=== PATIENT | male | born 1945 | race Caucasian/White ===

== ENCOUNTER 2019-12-19 07:21 | Outpatient (CLI) | payer MEDICARE, SELFPAY ==
[2019-12-19 07:35] LABS: Basophils Absolute Auto 0.08 K/mm3 (0.00-0.10); Basophils Percent Auto 1.3 % (0.0-1.0); Eosinophils Absolute Auto 0.21 K/mm3 (0.02-0.50); Eosinophils Percent Auto 3.5 % (1.0-6.0); Hematocrit 48.4 % (37.0-46.0); Hemoglobin 15.9 g/dL (12.4-15.3); Immature Granulocyte Absolute 0.06 K/mm3 (0.00-0.00); Lymphocytes Absolute Auto 2.17 K/mm3 (1.10-4.50); Lymphocytes Percent Auto 35.8 % (18.0-42.0); Mean Corpuscular HGB Conc 32.9 g/dL (32.0-36.0); Mean Corpuscular Hemoglobin 28.4 pg (27.0-31.0); Mean Corpuscular Volume 86.6 fL (78.0-102.0); Mean Platelet Volume 8.5 fl (8.7-11.0); Monocytes Absolute Auto 0.51 K/mm3 (0.10-0.90); Monocytes Percent Auto 8.4 % (2.0-11.0); Platelet Count Result 212 K/mm3 (150-420); Red Blood Count 5.59 M/mm3 (4.70-6.10); Red Cell Distribution Width 14.2 % (11.6-14.4); White Blood Count 6.1 K/mm3 (4.8-10.8)
[2019-12-19 08:59] LABS: Alanine Aminotransferase 20 U/L (16-63); Albumin Level 3.2 g/dL (3.4-5.0); Alkaline Phosphatase 118 U/L (46-116); Anion Gap 8.4 mmol/L (7-16); Aspartate Amino Transferase 14 U/L (15-37); Bilirubin,Total 0.3 mg/dL (0.00-1.00); Blood Urea Nitrogen 14 mg/dL (7-18); Calcium 8.7 mg/dL (8.5-10.1); Carbon Dioxide 32 mmol/L (21-32); Chloride 107 mmol/L (98-108); Cholesterol 110 mg/dL (0-200); Estimated Glomerular Filt Rate > 60; Glucose 90 mg/dL (70-99); HDL Direct 41 mg/dL (40-60); LDL Cholesterol Calculated 53 mg/dL (<130); Osmolality Calculated 296 mOsm/kg (285-295); Potassium 4.4 mmol/L (3.5-5.1); Sodium 143 mmol/L (136-145); Total Protein 6.4 g/dL (6.4-8.2); Triglycerides 80 mg/dL (0-150)
[2019-12-19 09:22] LABS: Thyroid Stimulating Hormone Reflex 1.85 u/IU/mL (0.36-3.74)
[2019-12-19 12:56] LABS: Creatinine Urine 97.89 mg/dL (40-278)
== END 2019-12-19 07:22 | disposition home or self-care (01) ==
PROVIDERS: PCP Family Medicine; Visit Provider Family Medicine
DX: I10 Essential (primary) hypertension (principal)
CPT/HCPCS: 36415; 80053; 80061; 82043; 84443; 85025

== ENCOUNTER 2020-02-23 09:47 | Outpatient (CLI) | payer MEDICARE, SELFPAY ==
--- NOTE | ~2020-02-23 | CT_ITS ---
EXAMINATION:CT lung screening DATE: 02/23/2020 10:03 INDICATION: Personal history of tobacco dependence. Current smoker with 50 pack year history. TECHNIQUE: Computed tomography (CT) of the chest was performed without intravenous contrast. Automate d exposure control and iterative reconstruction technique were employed. The dose-length product (DLP ) was 201.55 mGy-cm. COMPARISON: None. FINDINGS: There is severe emphysema. There is mild atelectasis in right upper lobe. There is a 17 mm nodule in right lower lobe suspicious for primary bronchogenic carcinoma. There are greater than 20 s cattered nodules in the lungs in a random distribution measuring up to 8 mm suspicious for metastatic disease. A calcified right lung nodule is consistent with old granulomatous disease. No pleural effu zari. The heart size is normal. There are coronary artery calcifications. No pericardial effusion. Th ere is mild mediastinal lymphadenopathy suspicious for metastatic disease. For example, a right parat tomer node measures 12 x 21 mm. There is a 10 mm mass in left adrenal gland measuring low-attenuati on, consistent with an adenoma. There is mild chronic anterior wedging of T8 vertebral body. There is mild thoracic spondylosis. There is an old healed fracture of T1 spinous process. IMPRESSION: 1. Lung-RADS category 4X: Very suspicious. CT-guided biopsy of the largest lung nodule is recommended . Reviewed, dictated and finalized at location B. IMPRESSION: 1. Lung-RADS category 4X: Very suspicious. CT-guided biopsy of the largest lung nodule is recommended.
== END 2020-02-23 09:48 | disposition home or self-care (01) ==
LOC: CHSIMG 09:49
PROVIDERS: PCP Family Medicine; Visit Provider Family Medicine
DX: Z12.2 Encounter for screening for malignant neoplasm of respiratory organs (principal); Z87.891 Personal history of nicotine dependence
CPT/HCPCS: G0297

== ENCOUNTER 2020-03-03 01:18 | Outpatient (CLI) | payer MEDICARE, SELFPAY ==
[2020-03-03 18:13] LABS: SARS-CoV-2 RNA PCR Negative
== END 2020-03-03 01:19 | disposition home or self-care (01) ==
LOC: ANHCOVIDDT 01:19
PROVIDERS: PCP Family Medicine; Visit Provider Internal Medicine Critical Care Medicine
DX: Z01.812 Encounter for preprocedural laboratory examination (principal); Z20.828 Contact with and (suspected) exposure to other viral communicable diseases
CPT/HCPCS: 87635; C9803; U0003

== ENCOUNTER 2020-03-06 08:50 | Outpatient (CLI) | payer MEDICARE, SELFPAY ==
[2020-03-02 12:41] VITALS: BMI 30.7
[2020-03-06] VITALS (10 sets, daily range): BP systolic 158–194; BP diastolic 76–98; PULSE 49–57; RESP 12–20; O2SAT 49–99
--- NOTE | ~2020-03-06 | XR_ITS ---
XR chest 1V portable DATE: 03/06/2020 14:47 INDICATION: Post image guided lung biopsy TECHNIQUE: Portable upright AP view on 03/16/2020 at 1448 hours COMPARISON: 03/06/2020 portable AP chest views 03/06/2020 CT-guided percutaneous needle biopsy of right upper lobe mass FINDINGS: Heart size is normal. There is mild aortic unfolding. A mass density is again noted overlying the right mid to upper lung. There is no evidence of pneumoth orax following CT-guided percutaneous needle biopsy. The lungs appear clear of infiltrate or consolid ation. IMPRESSION: No evidence of iatrogenic pneumothorax following today's CT-guided periosteal biopsy of s uperior segment right lower lobe lung mass Reviewed, dictated and finalized at location A. IMPRESSION: No evidence of iatrogenic pneumothorax following today's CT-guided periosteal biopsy of superior segment right lower lobe lung mass
--- NOTE | ~2020-03-06 | CT_ITS ---
EXAMINATION: CT biopsy lung DATE: 03/06/2020 11:48 INDICATION: Solitary pulmonary nodule. TECHNIQUE: The procedure including the risks and benefits was discussed with the patient. Risks discu ssed included infection, approximately 1/20 risk of symptomatic hemorrhage beyond mild hemoptysis, ap proximately 1/3 risk of pneumothorax, and approximately 1/10 risk of pneumothorax severe enough to wa rrant chest tube placement. The patient understood the risks and agreed to proceed. The patient was p laced prone. The skin overlying the paraspinal right posterior chest was prepped and draped in steri le fashion. Anesthetic was administered with 1% lidocaine subcutaneously. A 19 gauge outer needle w as advanced under CT guidance to the lesion of interest. A 20 gauge core biopsy needle was then used to obtain 3 core biopsy specimens. The needle was removed and the entry site was cleaned and dressed. There were no immediate complications. The dose-length product was 176.08 mGy-cm. FINDINGS: CT images demonstrate the outer needle tip adjacent to a 1.7 cm nodule with lobular margins in the superior segment of the right lower lobe. Severe emphysema with multiple additional scattered bilateral pulmonary nodules suspicious for metastatic disease. IMPRESSION: 1. Successful CT-guided biopsy of a 1.7 cm right lower lobe nodule concerning for primary bronchogeni c carcinoma. Reviewed, dictated and finalized at location A. IMPRESSION: 1. Successful CT-guided biopsy of a 1.7 cm right lower lobe nodule concerning f or primary bronchogenic carcinoma.
--- NOTE | ~2020-03-06 | XR_ITS ---
XR chest 1V 03/06/2020 11:51 Indication: Post right lung biopsy Procedure: AP view of the chest Comparison: CT dated 03/06/2020 Findings: There is focal consolidation in the right mid thorax. Heart size normal. No pleural effusio n or pneumothorax. Impression: 1: Focal consolidation right mid thorax may relate to hemorrhage from recent biopsy and/or mass. 2: No pneumothorax identified. Reviewed, dictated and finalized at location A. Impression: 1: Focal consolidation right mid thorax may relate to hemorrhage from recent bi opsy and/or mass. 2: No pneumothorax identified.
--- NOTE | ~2020-03-06 | XR_ITS ---
EXAMINATION: XR chest 1V portable DATE: 03/06/2020 13:06 INDICATION: Status post percutaneous right lung biopsy. TECHNIQUE: frontal view of the chest was obtained. COMPARISON: Chest radiograph dated 03/06/2020 at 11:48 AM FINDINGS: Interval resolution of the previous small amount of pulmonary hemorrhage surrounding the biopsied nod ule projecting over the right upper lung zone. No new airspace opacities, pleural effusion, pulmonary edema or pneumothorax. The cardiomediastinal silhouette is normal. IMPRESSION: 1. No pleural effusion or pneumothorax post biopsy of a nodule in the superior segment of the right l ower lobe. 2. Resolution of prior small amount of postbiopsy pulmonary hemorrhage surrounding the nodule which i s concerning for primary bronchogenic carcinoma. Reviewed, dictated and finalized at location A. IMPRESSION: 1. No pleural effusion or pneumothorax post biopsy of a nodule in the superior segment of the right lower lobe. 2. Resolution of prior small amount of postbiopsy pulmonary hemorrhage surround ing the nodule which is concerning for primary bronchogenic carcinoma.
[2020-03-06 09:45] LABS: Basophils Absolute Auto 0.1 K/mm3 (0.0-0.1); Eosinophils Absolute Auto 0.3 K/mm3 (0-0.3); Eosinophils Percent Auto 4.1 % (0-4.4); Hematocrit 49.2 % (42.0-52.0); Hemoglobin 16.2 g/dL (14.0-18.0); Immature Granulocyte Absolute 0.08 K/mm3 (0.00-0.031); Immature Granulocyte Percent A 1.1 % (0-0.5); Lymphocytes Absolute Auto 2.28 K/mm3 (0.9-3.2); Lymphocytes Percent Auto 31.1 % (18.3-44.2); Mean Corpuscular HGB Conc 32.9 g/dl (32-36); Mean Corpuscular Volume 88.2 fl (80-100); Mean Platelet Volume 8.9 fl (7.4-10.4); Monocytes Absolute Auto 0.6 K/mm3 (0.1-0.6); Monocytes Percent Auto 8.2 % (2.6-8.5); Neutrophils Percent Auto 54.5 % (45.5-73.1); Platelet Count Result 186 k/mm3 (150-375); Red Blood Count 5.58 M/mm3 (4.6-6.20); Red Cell Distribution Width 15.8 % (11.5-14.5); White Blood Count 7.3 K/mm3 (4.5-10.0)
[2020-03-06 10:01] LABS: Prothrombin Time 13.3 Seconds (11.1-14.7)
--- NOTE | 2020-03-06 14:40 | SUR.PHASEII ---
1300 chest xray done. called dr helton about orders and pt wanting to sit up in stretcher. also about drsg with bloody drainage,instructed to change drsg.
--- NOTE | 2020-03-06 15:00 | SUR.PHASEII ---
1450 chest xray done.
== END 2020-03-06 15:15 | disposition home or self-care (01) ==
PROVIDERS: Radiology Diagnostic Radiology; PCP Family Medicine; Visit Provider Internal Medicine Critical Care Medicine
DX: R91.1 Solitary pulmonary nodule (principal)
CPT/HCPCS: 32405; 36415; 71045; 77012; 85025; 85610; 88305

== ENCOUNTER 2020-08-15 10:49 | Outpatient (CLI) | payer MEDICARE, SELFPAY ==
--- NOTE | ~2020-08-15 | CT_ITS ---
EXAMINATION: CT diagnostic chest w con DATE: 08/15/2020 11:18 INDICATION: Cough, shortness of breath. COPD. Smoker. TECHNIQUE: Computed tomography (CT) of the chest was performed with 75 cc Omnipaque 350 intravenous c ontrast. Automated exposure control and iterative reconstruction technique were employed. Exam dose: 565.20 mGy-cm total exam DLP. COMPARISON: 03/06/2020 portable AP chest 03/06/2020 CT lung biopsy 02/23/2020 CT lung screening FINDINGS: There is a stable lobular noncalcified soft tissue mass of up to approximately 1.6 cm dimen zari in the posterior right mid lung field and similar axial plane as the norma. This appears stable since 02/23/2020. Bullous emphysematous changes are again noted. Prominent discoid atelectasis or scarring is noted along the right greater fissure. There is a linear right apical scarring. There are multiple scattered bilateral nodular opacities, including the largest, a 7 mm nodule in the posterior segment of the left upper lobe (series 4 image 50) and an irregular up to 6.5 mm opacity i n the right upper lobe (series 4 image 31). Numerous additional smaller pulmonary opacities are prese nt. Metastatic disease or small primary pulmonary malignancies cannot be excluded. Continued CT follo w-up imaging in 6 months is recommended. Stable right paratracheal, aortopulmonary window, subcarinal and right hilar mild lymphadenopathy. Normal heart size. Normal morphology of the adrenal glands. IMPRESSION: Stable right upper lobe 1.6 cm mass Up to 7 mm bilateral lung masses which may indicate metastatic disease or small primary bronchogenic carcinomas versus infectious or granulomatous process; continued CT follow-up in 6 months is recommen ded Reviewed, dictated and finalized at Location A. Reviewed, dictated and finalized at location B. [employer] IMPRESSION: Stable right upper lobe 1.6 cm mass Up to 7 mm bilateral lung masses which may indicate metastatic disease or small primary bronchogenic carcinomas versus infectious or granulomatous process; co ntinued CT follow-up in 6 months is recommended
[2020-08-15 11:15] LABS: Estimated Glomerular Filt Rate > 60
== END 2020-08-15 10:50 | disposition home or self-care (01) ==
LOC: ANHIMG 10:52
PROVIDERS: PCP Family Medicine; Visit Provider Nurse Practitioner Family
DX: J43.9 Emphysema, unspecified (principal); R91.1 Solitary pulmonary nodule
CPT/HCPCS: 71260; Q9967

== ENCOUNTER 2020-10-23 11:07 | Inpatient (IN) | payer MEDICARE, SELFPAY ==
[2020-10-23] VITALS (7 sets, daily range): BP systolic 85–114; BP diastolic 42–63; PULSE 57–66; RESP 17–18; TEMP 36.1–36.6; O2SAT 95–97; BMI 29.6
[2020-10-23] MEDS: SODIUM CHLORIDE 0.9% IV 1,000 ML 999 ML (11:53)
--- NOTE | 2020-10-23 11:54 | ED.WEAKNESS ---
HPI - Weakness General Stated complaint: Weak Time Seen by Provider: 10/23/20 11:09 Source: patient and RN notes reviewed Mode of arrival: ambulatory Limitations: no limitations History of Present Illness Complaint: generalized weakness Related Data Home Medications Medication Instructions Recorded Confirmed aspirin 81 mg tablet,delayed 81 mg PO DAILY 09/02/19 10/23/20 release clopidogrel 75 mg tablet 75 mg PO DAILY tablet 09/02/19 10/23/20 omeprazole magnesium 20 mg 20 mg PO DAILY 09/02/19 10/23/20 capsule,delayed release lisinopril 20 mg tablet 40 mg PO DAILY tablet 08/30/20 10/23/20 omeprazole 20 mg PO DAILY 10/23/20 10/23/20 Allergies Allergy/AdvReac Type Severity Reaction Status Date / Time Penicillins Allergy Rash Verified 09/14/20 08:35 [facility] Past Medical History Medical History Chronic GERD Cigarette nicotine dependence Emphysema of lung Hyperlipidemia Hypertension Knee pain Lung nodule Lung nodules Rhinitis Shortness of breath on exertion Tobacco abuse Surgical History Surgical History H/O shoulder surgery History of appendectomy History of lung biopsy S/P coronary artery stent placement Family History Family History Father Lung cancer Mother Breast cancer Colon cancer Social History Social History Smoking packs per day: 1 Smoking cigarettes per day: 20.0 Years smoked: 50 Smoking pack-years: 50.00 Smoking status: Current every day smoker Alcohol intake: current Substance use: never Substance use type: marijuana Additional occupation/education comments: Sales Discharge Plan Discharge Prescriptions: No Action omeprazole 20 mg Tablet,Delayed Release (Dr/Ec) 20 mg PO DAILY RF: 0 Anoro Ellipta 62.5-25 mcg/actuation blister with device 1 inhalation INHALATION Q24H 30 Days Qty: 60 RF: 5 lisinopril 20 mg tablet 40 mg PO DAILY RF: 0 meloxicam 15 mg tablet 15 mg PO DAILY Qty: 30 RF: 3 atorvastatin 40 mg tablet 40 mg PO DAILY Qty: 30 RF: 5 chlorthalidone 25 mg tablet 25 mg PO DAILY Qty: 30 RF: 3 clopidogrel 75 mg tablet 75 mg PO DAILY RF: 0 Hold Instructions: Resume on 03/07/20. may restart in 24 hours omeprazole magnesium [Ac[employer] Service Representative (omeprazole)] 20 mg capsule,delayed release(DR/EC) 20 mg PO DAILY RF: 0 aspirin [Adult Low Dose Aspirin] 81 mg tablet,delayed release (DR/EC) 81 mg PO DAILY RF: 0 Hold Instructions: Resume on 03/07/20. may restart in 24 hours atenolol 50 mg tablet 75 mg PO DAILY Qty: 11 RF: 0
--- NOTE | 2020-10-23 12:02 | ED.NAVMDI ---
HPI - Nausea/Vomiting/Diarrhea General Source: patient and RN notes reviewed <Gurdeep Cannon MD - Last Filed: 10/23/20 14:30> Mode of arrival: ambulatory <Gurdeep Cannon MD - Last Filed: 10/23/20 14:30> Limitations: no limitations <Gurdeep Cannon MD - Last Filed: 10/23/20 14:30> History of Present Illness MD elicited complaint: diarrhea <Gurdeep Cannon MD - Last Filed: 10/23/20 14:30> Onset (ago): day(s) (8) <Gurdeep Cannon MD - Last Filed: 10/23/20 14:30> Description of diarrhea: watery <Gurdeep Cannon MD - Last Filed: 10/23/20 14:30> Associated nausea: No <Gurdeep Cannon MD - Last Filed: 10/23/20 14:30> Associated abdominal pain: No <Gurdeep Cannon MD - Last Filed: 10/23/20 14:30> Location of pain: none <Gurdeep Cannon MD - Last Filed: 10/23/20 14:30> Exacerbating factors: eating <Gurdeep Cannon MD - Last Filed: 10/23/20 14:30> Relieving factors: none <Gurdeep Cannon MD - Last Filed: 10/23/20 14:30> Associated symptoms: weakness <Gurdeep Cannon MD - Last Filed: 10/23/20 14:30> Treatment prior to arrival: other ( Pepto-Bismol) <Gurdeep Cannon MD - Last Filed: 10/23/20 14:30> Related Data Home medications: Home Medications Medication Instructions Recorded Confirmed aspirin 81 mg tablet,delayed 81 mg PO DAILY 09/02/19 10/23/20 release clopidogrel 75 mg tablet 75 mg PO DAILY tablet 09/02/19 10/23/20 omeprazole magnesium 20 mg 20 mg PO DAILY 09/02/19 10/23/20 capsule,delayed release lisinopril 20 mg tablet 40 mg PO DAILY tablet 08/30/20 10/23/20 omeprazole 20 mg PO DAILY 10/23/20 10/23/20 <Gurdeep Cannon MD - Last Filed: 10/23/20 14:30> Allergies/Adverse reactions: Allergies Allergy/AdvReac Type Severity Reaction Status Date / Time Penicillins Allergy Rash Verified 09/14/20 08:35 <Gurdeep Cannon MD - Last Filed: 10/23/20 14:30> Review of Systems Constitutional: Constitutional: Denies chills, Denies fever(s) and Reports weakness <Gurdeep Cannon MD - Last Filed: 10/23/20 14:30> Eyes: Eyes: Reports no additional eye complaints <Gurdeep Cannon MD - Last Filed: 10/23/20 14:30> ENT: Reports system reviewed and no additional complaints, except as documented <Gurdeep Cannon MD - Last Filed: 10/23/20 14:30> Cardiovascular: Cardiovascular: Reports no additional cardiovascular complaints <Gurdeep Cannon MD - Last Filed: 10/23/20 14:30> Respiratory: Respiratory: Reports no additional respiratory complaints <Gurdeep Cannon MD - Last Filed: 10/23/20 14:30> Gastrointestinal: Gastrointestinal: Denies abdominal pain, Denies constipation, Denies nausea and Denies vomiting <Gurdeep Cannon MD - Last Filed: 10/23/20 14:30> Genitourinary: Genitourinary: Denies dysuria and Denies urinary frequency <Gurdeep Cannon MD - Last Filed: 10/23/20 14:30> Neurologic: Reports system reviewed and no additional complaints, except as documented <Gurdeep Cannon MD - Last Filed: 10/23/20 14:30> Endocrine: Endocrine: Reports no additional endocrine complaints <Gurdeep Cannon MD - Last Filed: 10/23/20 14:30> [facility] Past Medical History Medical History: Medical History (Updated 10/23/20 @ 13:42 by Gurdeep Cannon MD) Chronic GERD Cigarette nicotine dependence Emphysema of lung Hyperlipidemia Hypertension Knee pain Lung nodule Lung nodules Rhinitis Shortness of breath on exertion Tobacco abuse <Gurdeep Cannon MD - Last Filed: 10/23/20 14:30> Surgical History Surgical History: Surgical History H/O shoulder surgery History of appendectomy History of lung biopsy S/P coronary artery stent placement <Gurdeep Cannon MD - Last Filed: 10/23/20 14:30> Family History Family History: Family History Father Lung cancer Mother Breast cancer Colon cancer <Gurdeep Cannon M
[2020-10-23 12:13] LABS: Basophils Absolute Auto 0.08 K/mm3 (0.00-0.10); Basophils Percent Auto 0.8 % (0.0-1.0); Eosinophils Absolute Auto 0.37 K/mm3 (0.02-0.50); Eosinophils Percent Auto 3.6 % (1.0-6.0); Hematocrit 43.8 % (37.0-46.0); Hemoglobin 14.7 g/dL (12.4-15.3); Immature Granulocyte Absolute 0.21 K/mm3 (0.00-0.00); Mean Corpuscular HGB Conc 33.6 g/dL (32.0-36.0); Mean Corpuscular Hemoglobin 28.4 pg (27.0-31.0); Mean Corpuscular Volume 84.6 fL (78.0-102.0); Mean Platelet Volume 8.5 fl (8.7-11.0); Monocytes Absolute Auto 0.92 K/mm3 (0.10-0.90); Monocytes Percent Auto 8.9 % (2.0-11.0); Neutrophils Absolute Auto 6.1 K/mm3 (1.7-7.2); Neutrophils Percent Auto 58.7 % (50.0-70.0); Platelet Count Result 288 K/mm3 (150-420); Red Blood Count 5.18 M/mm3 (4.70-6.10); Red Cell Distribution Width 14.4 % (11.6-14.4); White Blood Count 10.4 K/mm3 (4.8-10.8)
[2020-10-23 12:29] LABS: Alanine Aminotransferase 26 U/L (16-63); Albumin Level 3.3 g/dL (3.4-5.0); Alkaline Phosphatase 111 U/L (46-116); Anion Gap 14 mmol/L (8-16); Aspartate Amino Transferase 11 U/L (15-37); Bilirubin,Total 0.3 mg/dL (0.00-1.00); Blood Urea Nitrogen 114 mg/dL (7-18); Calcium 8.9 mg/dL (8.5-10.1); Carbon Dioxide 18 mmol/L (21-32); Chloride 102 mmol/L (98-108); Estimated Glomerular Filt Rate 11; Glucose 88 mg/dL (70-99); Osmolality Calculated 313 mOsm/kg (285-295); Potassium 5.1 mmol/L (3.5-5.1); Sodium 134 mmol/L (136-145); Total Protein 7.2 g/dL (6.4-8.2)
[2020-10-23 12:43] LABS: Lipase 2306 U/L (73-393)
[2020-10-23] MEDS: SODIUM CHLORIDE 0.9% IV 1,000 ML 999 ML IV CONT (12:46)
[2020-10-23 12:55] LABS: Amylase 460 U/L (25-115)
[2020-10-23 12:57] LABS: CRP 1.5 mg/dL (0.0-0.9)
--- NOTE | 2020-10-23 14:31 | ADMGEN ---
This patient, Gigi Barfield, was admitted to 2nd Floor Room 205-2. Patient/family oriented to hospital policies and general routines including ID bracelet, bed and alarms, visiting hours, pain management, procedures, bathroom and other care routines, personal items, smoking policy, room service/diet, and visiting hours. Information on how to activate the Rapid Response Team has been discussed. Patient/Family are encouraged to report perceived risks to care and to ask questions if they do not understand what they are told or what they should do. Here from er with c/o general weakness and loose stools over the last week. just feel wore out. Denies any pain or sob.
--- NOTE | 2020-10-23 15:25 | PM.IMHP ---
H&P: HPI History of Present Illness Date/Time: 10/23/20 15:25 Gigi Barfield is a 75 year old male who comes to the hospital after having diarrhea for about 8 days. Pt states that he does eat well when he wants to but actually does not eat very much. He admits to less than a 12 pack of beer per week. He denies abdominal pain, admits to 1 episode of vomiting. Pt also states that he has only urinated about 5 times in the last week or so. Pt states that his urine has been quite dark when he does actually urinate. Pt denies any CP, difficulty breathing, no abdominal pain, no additional vomiting, no nausea, admits to slight muscle weakness in the legs. <PARMJIT Marte - Last Filed: 10/23/20 16:05> Chief Complaint: Diarrhea, weakness <PARMJIT Marte - Last Filed: 10/23/20 16:05> Review of Systems Constitutional: Constitutional: Reports no additional constitutional complaints, Denies body ache(s), Denies chills, Denies fever(s), Reports poor appetite and Reports weakness <PARMJIT Marte - Last Filed: 10/23/20 16:05> Eyes: Eyes: Reports no additional eye complaints and Denies change in vision <PARMJIT Marte - Last Filed: 10/23/20 16:05> ENT: Reports system reviewed and no additional complaints, except as documented, Denies vertigo, Denies dizziness and Denies headache(s) <PARMJIT Marte - Last Filed: 10/23/20 16:05> Cardiovascular: Cardiovascular: Reports no additional cardiovascular complaints, Denies chest pain and Denies chest pain at rest <PARMJIT Marte - Last Filed: 10/23/20 16:05> Respiratory: Respiratory: Reports no additional respiratory complaints, Denies cough, Denies dyspnea and Denies dyspnea on exertion <PARMJIT Marte - Last Filed: 10/23/20 16:05> Gastrointestinal: Gastrointestinal: Reports no additional gastrointestinal complaints, Denies abdominal pain and Reports diarrhea <PARMJIT Marte - Last Filed: 10/23/20 16:05> Genitourinary: Genitourinary: Reports no additional male genitourinary complaints and Reports as per HPI <PARMJIT Marte - Last Filed: 10/23/20 16:05> Musculoskeletal: Musculoskeletal: Reports no additional musculoskeletal complaints and Reports as per HPI <PARMJIT Marte - Last Filed: 10/23/20 16:05> Neurologic: Reports system reviewed and no additional complaints, except as documented, Reports Normal hearing present, Denies vertigo and Denies dizziness <PARMJIT Marte - Last Filed: 10/23/20 16:05> Psychiatric: Psychiatric: Reports no additional psychiatric complaints <PARMJIT Marte - Last Filed: 10/23/20 16:05> [facility] Past Medical History Medical History: Medical History Chronic GERD Cigarette nicotine dependence Emphysema of lung Hyperlipidemia Hypertension Knee pain Lung nodule Lung nodules Rhinitis Shortness of breath on exertion Tobacco abuse <PARMJIT Marte - Last Filed: 10/23/20 16:05> Surgical History Surgical History: Surgical History H/O shoulder surgery History of appendectomy History of lung biopsy S/P coronary artery stent placement <PARMJIT Marte - Last Filed: 10/23/20 16:05> Family History Family History: Family History Father Lung cancer Mother Breast cancer Colon cancer <PARMJIT Marte - Last Filed: 10/23/20 16:05> Social History Social History: Social History Smoking packs per day: 1 Smoking cigarettes per day: 20.0 Years smoked: 50 Smoking pack-years: 50.00 Smoking status: Current every day smoker Tobacco type: cigarettes Alcohol intake: current Drinks per week: 24 Substance use: never Substance use type: marijuana Additional occupation/education comments: Sales
--- NOTE | 2020-10-23 15:56 | PC.NURSE ---
Pt voided 400 ml clear yellow urine. Ua collected and taken to lab.
[2020-10-23 16:21] LABS: Add Urine Microscopic? NO; Appearance Urine Clear (Clear); Bilirubin Urine Negative (Negative); Blood Urine Negative (Negative); Color Urine Yellow (Yellow); Glucose Urine UA Negative (Negative); Ketones Urine Negative (Negative); Leukocyte Esterase Ur Negative LEU/UL (Negative); Nitrate Urine Negative (Negative); Protein Urine Negative (Negative); Urobilinogen Urine 0.2 mg/dL (0.2-1.0)
[2020-10-23] MEDS: SODIUM CHLORIDE 0.9% IV 1,000 ML 125 ML IV CONT (23:05)
[2020-10-24 00:18] VITALS: BP 82/48; PULSE 67; RESP 18; TEMP 36.9; O2SAT 93
--- NOTE | 2020-10-24 04:44 | PC.NURSE ---
Patientup and dressed per self, took IV site out per self, States that he is ready to go home, is sitting in his room waiting, denies pain or discomfort, no nausea or diarrhea.
[2020-10-24 05:38] LABS: Hematocrit 44.4 % (37.0-46.0); Hemoglobin 14.9 g/dL (12.4-15.3); Mean Corpuscular HGB Conc 33.6 g/dL (32.0-36.0); Mean Corpuscular Hemoglobin 29.1 pg (27.0-31.0); Mean Corpuscular Volume 86.7 fL (78.0-102.0); Platelet Count Result 278 K/mm3 (150-420); Red Blood Count 5.12 M/mm3 (4.70-6.10); Red Cell Distribution Width 14.6 % (11.6-14.4); White Blood Count 10.2 K/mm3 (4.8-10.8)
--- NOTE | 2020-10-24 05:51 | PC.NURSE ---
Patient is up walkling around and going outside to smoke, got his own glass of water, is waiting to leave he says.
[2020-10-24 05:53] LABS: Anion Gap 12 mmol/L (8-16); Blood Urea Nitrogen 90 mg/dL (7-18); Calcium 9.4 mg/dL (8.5-10.1); Carbon Dioxide 20 mmol/L (21-32); Chloride 107 mmol/L (98-108); Estimated CRCL calculation 23 ml/min; Estimated Glomerular Filt Rate 22; Glucose 78 mg/dL (70-99); Osmolality Calculated 314 mOsm/kg (285-295); Potassium 4.9 mmol/L (3.5-5.1); Sodium 139 mmol/L (136-145)
[2020-10-24 05:54] LABS: Lipase 2050 U/L (73-393)
--- NOTE | 2020-10-24 06:30 | PC.NURSE ---
Spoke to patient about restarting his IV site; He told the staff that he didnt think he needed one restarted. IV remains out at this time. Message left with Pradeep, ER nurse , to give to Dr. Cannon regarding pt's not wanting his IV restarted ( Dr. Cannon was with a patient).
[2020-10-24 08:00] VITALS: BP 106/48; PULSE 62; RESP 18; TEMP 36.6; O2SAT 97
[2020-10-24] MEDS: CLOPIDOGREL BISULFATE 75 MG TABLET PO (08:01)
[2020-10-24] MEDS: ATORVASTATIN 40 MG TABLET PO (08:01)
[2020-10-24] MEDS: lisinopriL 20 MG TABLET 40 MG PO (08:01)
[2020-10-24] MEDS: SODIUM CHLORIDE 0.9% IV 1,000 ML 125 ML IV CONT (08:01)
[2020-10-24] MEDS: ASPIRIN 81 MG ENTERIC TABLET PO (08:01)
[2020-10-24] MEDS: PANTOPRAZOLE SODIUM IV 40 MG VIAL IV PUSH (08:01)
[2020-10-24] MEDS: UMECLIDINIUM/VILANTEROL 62.5-25 MCG ELLIPTA 1 PUFF INHALATION (08:07)
--- NOTE | 2020-10-24 11:19 | PM.DS ---
DS: Admitting Diagnosis Admitting Diagnosis Admitting Diagnosis: Acute Pancreatitis, Acute Renal Failure <Gray ChambersISSACN-C - Last Filed: 10/24/20 13:07> DS: Discharge Diagnosis Discharge Diagnosis (1) Acute pancreatitis: Qualifiers: Acute pancreatitis complication: no infection or necrosis Pancreatitis type: idiopathic Qualified Code(s): K85.00 - Idiopathic acute pancreatitis without necrosis or infection <Gray LauDimitris Reyes CAN FILLER-C - Last Filed: 10/24/20 13:07> Code(s): K85.90 - Acute pancreatitis without necrosis or infection, unspecified <Gray Chambers CAN FILLER-C - Last Filed: 10/24/20 13:07> Status: Acute <Gray Chambers CAN FILLER-C - Last Filed: 10/24/20 13:07> Assessment and Plan: 10/23/2020 Pt received 2 Liters NS in the ER and currently NS @ 125 ml/h, NPO, bowel rest, Morphine for pain management (currently no abdominal pain), monitor Lipase, Advance diet as tolerated, Pt states less than a case (12 pack) of beer per week, normal WBC count. 10/24/2020 Lipase lower today at 2049, Pt continues to be without pain at rest/ while eating/ with palpation of the abdomen, no N/V/D, Pt positive fluid balance of 1850 ml, Pt did not require any pain medications during her stay. <Gray Chambers CAN FILLER-C - Last Filed: 10/24/20 13:07> (2) Acute renal failure: Qualifiers: Acute renal failure type: unspecified Qualified Code(s): N17.9 - Acute kidney failure, unspecified <Gray LauDimitris Reyes CAN FILLER-C - Last Filed: 10/24/20 13:07> Code(s): N17.9 - Acute kidney failure, unspecified <Gray LauDimitris Ibrahimarolly CAN FILLER-C - Last Filed: 10/24/20 13:07> Status: Acute <Gray Chambers CAN FILLER-C - Last Filed: 10/24/20 13:07> Assessment and Plan: 10/23/2020 Had 2 Liters NS in the ER, continue with NS 125ml/h, monitor renal function, monitor I&O 10/24/2020 Cr improved today to 2.81, encouraged Pt to continue drinking water after DC home, follow up with PCP, reduce EtOH intake <PARMJIT Marte - Last Filed: 10/24/20 13:07> (3) Emphysema of lung: Qualifiers: Emphysema type: unspecified Qualified Code(s): J43.9 - Emphysema, unspecified <PARMJIT Marte - Last Filed: 10/24/20 13:07> Code(s): J43.9 - Emphysema, unspecified <KYLE MarteC - Last Filed: 10/24/20 13:07> Status: Acute <PARMJIT Marte - Last Filed: 10/24/20 13:07> Assessment and Plan: 10/23/2020 Chronic and stable, continue with Anoro Ellipta, monitor respiratory status 10/24/2020 Chronic stable condition, continue with home regimen on DC <PARMJIT Marte - Last Filed: 10/24/20 13:07> (4) Chronic GERD: Code(s): K21.9 - Gastro-esophageal reflux disease without esophagitis <PARMJIT Marte - Last Filed: 10/24/20 13:07> Status: Chronic <PARMJIT Marte - Last Filed: 10/24/20 13:07> Assessment and Plan: 10/23/2020 Protonix <PARMJIT Marte - Last Filed: 10/24/20 13:07> (5) Hypertension: Code(s): I10 - Essential (primary) hypertension <KYLE MarteC - Last Filed: 10/24/20 13:07> Status: Chronic <PARMJIT Marte - Last Filed: 10/24/20 13:07> Assessment and Plan: 10/23/2020 BP soft at this time (80-90/40-60, HR 60s), HOLD Atenolol and Chlorthalidone at this time, monitor VS and make adjustments as needed. 10/24/2020 BP 100-110/40-50 with HR 50-60, will continue to hold Atenolol and Chlorthalidone on DC and have Pt f/u with PCP for further management of HTN, Pt asymptomatic <PARMJIT Marte - Last Filed: 10/24/20 13:07> (6) Hyperlipidemia: Code(s): E78.5 - Hyperlipidemia, unspecified <PARMJIT Marte - Last Filed: 10/24/20 13:07> Status: Chronic <PARMJIT Marte - Last Filed: 10/24/20 13:07> Assessment and Plan: 10/23/2020 Continue Atorvastatin <Gray Chambers APN
--- NOTE | 2020-10-24 13:44 | PC.NURSE ---
0213 patient dc instructions went over along with follow up. encouraged to stop alcohol usage. drink extra water. vocalizes an understanding. wc to personal auto.
--- NOTE | 2020-10-26 10:26 | PC.NURSE ---
Pt states he received and understood the discharge instructions. Has no comments regarding his care.
== END 2020-10-24 13:30 | disposition home or self-care (01) | DRG 439 ==
LOC: CHSED 13:41 → CHS2ND 14:01
PROVIDERS: Nurse Practitioner Family; Admitting Provider Emergency Medicine; Emergency Provider Emergency Medicine; PCP Family Medicine; Visit Provider Emergency Medicine
DX: K85.00 Idiopathic acute pancreatitis without necrosis or infection (principal); K21.9 Gastro-esophageal reflux disease without esophagitis; I10 Essential (primary) hypertension; J43.9 Emphysema, unspecified; E78.5 Hyperlipidemia, unspecified; R91.8 Other nonspecific abnormal finding of lung field; Z95.5 Presence of coronary angioplasty implant and graft; N17.9 Acute kidney failure, unspecified; F17.210 Nicotine dependence, cigarettes, uncomplicated; Z80.1 Family history of malignant neoplasm of trachea, bronchus and lung; Z80.3 Family history of malignant neoplasm of breast; Z80.0 Family history of malignant neoplasm of digestive organs
CPT/HCPCS: 36415; 80048; 80053; 81003; 82150; 83690; 85025; 85027; 86140; 96360; 96361; 99285; A9270; C9113; J7030

== ENCOUNTER 2020-11-29 11:58 | Outpatient (CLI) | payer MEDICARE, SELFPAY ==
[2020-11-29 12:49] LABS: Anion Gap 9 mmol/L (8-16); Blood Urea Nitrogen 8 mg/dL (7-18); Calcium 9.1 mg/dL (8.5-10.1); Carbon Dioxide 30 mmol/L (21-32); Chloride 103 mmol/L (98-108); Estimated Glomerular Filt Rate > 60; Glucose 108 mg/dL (70-99); Osmolality Calculated 293 mOsm/kg (285-295); Potassium 3.6 mmol/L (3.5-5.1); Sodium 142 mmol/L (136-145)
== END 2020-11-29 11:59 | disposition home or self-care (01) ==
PROVIDERS: PCP Family Medicine
DX: N28.9 Disorder of kidney and ureter, unspecified (principal)
CPT/HCPCS: 36415; 80048

== ENCOUNTER 2020-12-13 09:27 | Outpatient (CLI) | payer MEDICARE, SELFPAY ==
--- NOTE | ~2020-12-13 | US_ITS ---
EXAMINATION:US venous doppler LE BI INDICATION:Leg edema TECHNIQUE: Multiple grayscale, color flow and Doppler images of the right and left lower extremity de ep venous systems were obtained and reviewed. COMPARISON:No prior studies for comparison. FINDINGS: The common femoral, superficial femoral and popliteal veins demonstrate normal respiratory variation, augmentation and compressibility. Color flow is also seen within the posterior tibial, pe roneal, greater saphenous and profunda veins. IMPRESSION: 1: No lower extremity deep venous thrombosis. Reviewed, dictated and finalized at location A.
== END 2020-12-13 09:28 | disposition home or self-care (01) ==
LOC: CHSIMG 09:29
PROVIDERS: PCP Family Medicine; Visit Provider Family Medicine
DX: R60.9 Edema, unspecified (principal); M79.606 Pain in leg, unspecified
CPT/HCPCS: 93970

== ENCOUNTER 2021-03-14 08:20 | Outpatient (CLI) | payer MEDICARE, SELFPAY ==
--- NOTE | ~2021-03-14 | CT_ITS ---
EXAMINATION: CT diagnostic chest wo con DATE: 03/14/2021 08:52 INDICATION: Other nonspecific abnormal finding of the lung field, prior right lower lobe biopsy demon strating pulmonary chondroma TECHNIQUE: Computed tomography (CT) of the chest was performed without intravenous contrast. The dose -length product (DLP) was 176.88 mGy-cm. Automated exposure control and iterative reconstruction tech [employer] were employed. COMPARISON: 08/15/2020, 02/23/2020 FINDINGS: There is severe emphysema. A stable 1.7 cm nodule in the right lower lobe has been previous ly biopsied (pulmonary chondroma). There is a stable 7 mm nodule in the left upper lobe on image 51. Multiple additional smaller, stable nodules are present. No new pulmonary nodules are identified. The re is no pleural effusion or pneumothorax. No pathologically enlarged thoracic lymph nodes are identi fied. The heart size is normal. There is mild thoracic spondylosis. Again noted is mild chronic ante rior wedging of T8. IMPRESSION: 1. Multiple stable pulmonary nodules, the largest of which has undergone prior biopsy. 2. Severe emphysema. Reviewed, dictated and finalized at location A.
== END 2021-03-14 08:21 | disposition home or self-care (01) ==
LOC: ANHIMG 08:21
PROVIDERS: PCP Family Medicine; Visit Provider Nurse Practitioner Family
DX: R91.8 Other nonspecific abnormal finding of lung field (principal); J43.9 Emphysema, unspecified
CPT/HCPCS: 71250

== ENCOUNTER 2021-03-16 09:31 | Outpatient (CLI) | payer MEDICARE, SELFPAY ==
--- NOTE | ~2021-03-16 | XR_ITS ---
XR knee RT min 4V DATE: 03/16/2021 10:05 INDICATION: Right knee pain TECHNIQUE: 5 views COMPARISON: None FINDINGS: There is severe narrowing at the medial compartment with [id number] and some sclerosis at the apposing medial femoral condyle and medial tibial plateau. There is varus deformity at the right knee. There is periarticular spurring at the patellofemoral compartment. No fracture or dislocation, periosteal reaction or bone destruction. Mild suprapatellar bursa joint effusion is suggested. No radiopaque intra-articular loose body or chondrocalcinosis. Osteopenia IMPRESSION: Osteoarthritis, affecting most prominently the medial compartment Mild suprapatellar knee joint effusion is suggested Reviewed, dictated and finalized at location A.
== END 2021-03-16 09:32 | disposition home or self-care (01) ==
LOC: CHSIMG 09:32
PROVIDERS: PCP Family Medicine; Visit Provider Family Medicine
DX: M25.561 Pain in right knee (principal); M17.11 Unilateral primary osteoarthritis, right knee
CPT/HCPCS: 73564

== ENCOUNTER 2021-03-20 07:51 | Outpatient (RCR) | payer MEDICARE, SELFPAY ==
--- NOTE | 2021-03-20 08:02 | PTOPEVAL ---
Thank you for referring Gigi Barfield to [facility].? The patient is scheduled to be seen for therapy? ____x/week for ___ weeks. Please review, sign, date and return this plan of care CECI. I agree with and certify that the following plan of care is medically necessary. Referring Physician Date Admitting Provider: Attending Provider: Brock Wu MD Referring Provider: *PT Outpatient Evaluation Start: 03/20/21 07:09 Freq: Status: Active Protocol: Document 03/20/21 07:09 ACR (Rec: 03/20/21 08:01 ACR [id number]) Therapy Assessment Status Assessment Status Assessment Status Evaluation Outpatient Past Medical History Cardiovascular History Hx Hypercholesterolemia Yes Hx Hypertension Yes Hx Vascular Surgery Yes: STENT PLACED CAROTID Respiratory History Hx Chronic Obstructive Pulmonary Disease Yes (COPD) Hx Other Respiratory Disorders Yes: LUNG NODULE Gastrointestinal History Hx Gastroesophageal Reflux Disease Yes Genitourinary History Hx Kidney Stones Yes Musculoskeletal History Hx Arthritis Yes Hx Back Pain Yes Hx Orthopedic Surgery Yes: L SHOULDER RTC REPAIR HEENT History Hx Tonsillectomy Yes Evaluation Information Problem Diagnosis R knee pain Onset 09/17/20 Subjective Information Patient states that his R knee Query Text:As Reported By Patient/ has been bothering him, but Family there is no mechanism of injury. He states he is not very active because of it. Patient states he got an x-ray which shows arthritis. He states that if he is on it too much it starts to swell and his calf starts to ache. Patient states that walking/ standing for a prolonged period of time and steps are the most difficult activities for him. Patient states that he is unable to golf and cheung without an increase in pain. Patient states that his doctor gave him some pain medication , but he is unsure if it is helping at this time due to him just starting them a couple days ago. Patient states that his knee gives out by the end of
--- NOTE | 2021-04-23 08:56 | PCPTNOTE ---
Patient is a 76 year old male that was seen for the initial evaluation. He canceled all other appointments and stated he was able to perform all of his exercises at home. Please refer to evaluation for discharge status. Thank you, Chinyere Pizarro DPT
== END 2021-03-20 16:17 | disposition home or self-care (01) ==
LOC: CHSPT 07:51
PROVIDERS: PCP Family Medicine; Visit Provider Family Medicine
DX: M25.561 Pain in right knee (principal); R91.1 Solitary pulmonary nodule; E66.9 Obesity, unspecified; M25.569 Pain in unspecified knee; I10 Essential (primary) hypertension; E78.5 Hyperlipidemia, unspecified
CPT/HCPCS: 97110; 97161

== ENCOUNTER 2021-04-02 14:36 | Outpatient (CLI) | payer MEDICARE, SELFPAY | END 2021-04-02 14:37 | disposition home or self-care (01) | PROVIDERS: PCP Family Medicine; Visit Provider Specialist | DX: C43.59 Malignant melanoma of other part of trunk (principal) | CPT/HCPCS: 88305; 88342 ==

== ENCOUNTER 2022-03-13 10:30 | Outpatient (CLI) | payer MEDICARE, SELFPAY ==
--- NOTE | ~2022-03-13 | CT_ITS ---
EXAMINATION:CT lung screening DATE: 03/13/2022 10:53 INDICATION: Tobacco use. Current smoker with 50 pack year history. TECHNIQUE: Computed tomography (CT) of the chest was performed without intravenous contrast. Automate d exposure control and iterative reconstruction technique were employed. The dose-length product (DLP ) was 176.38 mGy-cm. COMPARISON: Chest CT 03/14/2021, 02/23/20 FINDINGS: There is severe emphysema. There is an 18 mm nodule in right lower lobe, stable from 0. Biopsy on 03/06/20 demonstrated pulmonary chondroma. There is an 8 mm nodule in left upper lobe, sta ble from 02/23/20. 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 There are a few chronic scattered nodules measuring up to [address] eural effusion. The heart size is normal. There are calcifications of the aortic valve. No pericardia l effusion. There is chronic mild mediastinal lymphadenopathy, likely reactive. A calcified right hil ar lymph node is consistent with old granulomatous disease. There is mild thoracic spondylosis. IMPRESSION: 1. Lung-RADS category 2: Benign appearance or behavior. Continue annual screening with noncontrast lo w-dose chest CT in 12 months. Reviewed, dictated and finalized at location A. IMPRESSION: 1. Lung-RADS category 2: Benign appearance or behavior. Continue annual screeni ng with noncontrast low-dose chest CT in 12 months.
== END 2022-03-13 10:31 | disposition home or self-care (01) ==
PROVIDERS: PCP Family Medicine; Visit Provider Nurse Practitioner Family
DX: Z12.2 Encounter for screening for malignant neoplasm of respiratory organs (principal); Z87.891 Personal history of nicotine dependence; R91.8 Other nonspecific abnormal finding of lung field
CPT/HCPCS: 71271

== ENCOUNTER 2023-03-24 13:29 | Outpatient (CLI) | payer MEDICARE, SELFPAY ==
--- NOTE | ~2023-03-24 | CT_ITS ---
EXAMINATION: CT lung screening DATE: 03/24/2023 13:51 INDICATION: Lung cancer screening TECHNIQUE: Computed tomography (CT) of the chest was performed without intravenous contrast. The dose -length product was 198.06 mGy-cm. Automated exposure control and iterative reconstruction technique were employed. COMPARISON: Comparison to multiple prior studies sequentially, with oldest reviewed study dated 02/22. FINDINGS: Mediastinal lymphadenopathy unchanged, likely reactive. There is atherosclerosis of the aor ta. No significant pleural or pericardial effusion. There is a 3.1 cm left renal cyst. Severe emphyse ma. There is 1.6 cm right lower lobe nodule, previously documented benign by biopsy. 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 Stable 8 mm left upper lobe nodule. There are additional scattered nodules measuring up to 5 mm unchanged. No en dobronchial lesions. There are reticulonodular densities in the upper lobes unchanged. There are surg ical changes in the axilla bilaterally. Moderate thoracic spondylosis. IMPRESSION: 1. Lung-RADS category 2: Benign appearance or behavior. Continue annual screening with noncontrast lo w-dose chest CT in 12 months. Reviewed, dictated and finalized at location L. IMPRESSION: 1. Lung-RADS category 2: Benign appearance or behavior. Continue annual screeni ng with noncontrast low-dose chest CT in 12 months.
== END 2023-03-24 13:30 | disposition home or self-care (01) ==
PROVIDERS: PCP Family Medicine; Visit Provider Nurse Practitioner Family
DX: Z12.2 Encounter for screening for malignant neoplasm of respiratory organs (principal); F17.210 Nicotine dependence, cigarettes, uncomplicated
CPT/HCPCS: 71271

== ENCOUNTER 2023-04-17 10:35 | Outpatient (CLI) | payer MEDICARE, SELFPAY ==
--- NOTE | 2023-04-17 11:15 | ECG_ITS ---
Measurements Intervals [place] Rate: 55 P: 51 W[place]: 291 QRS: 10 QRSD: 111 T: 34 QT: 441 QTc: 423 Interpretive Statements SINUS BRADYCARDIA WITH FIRST DEGREE AV BLOCK MODERATE INTRAVENTRICULAR CONDUCTION DELAY [110+ ms QRS DURATION] NO PREVIOUS ECG AVAILABLE FOR COMPARISON Electronically Signed On 04-17-2023 13:36:09 CDT by Latonya Corbin MD
[2023-04-17 11:29] LABS: Hematocrit 45.5 % (42.0-52.0); Hemoglobin 14.8 g/dL (14.0-18.0)
[2023-04-17 11:42] LABS: Albumin Level 4.1 g/dL (3.5-5.1); Estimated Glomerular Filt Rate > 60; Glucose 88 mg/dL (65-110)
== END 2023-04-17 10:36 | disposition home or self-care (01) ==
PROVIDERS: PCP Family Medicine; Visit Provider Orthopaedic Surgery
DX: F17.210 Nicotine dependence, cigarettes, uncomplicated (principal); K85.90 Acute pancreatitis without necrosis or infection, unspecified; N17.9 Acute kidney failure, unspecified; J44.9 Chronic obstructive pulmonary disease, unspecified; I10 Essential (primary) hypertension; M17.0 Bilateral primary osteoarthritis of knee
CPT/HCPCS: 36415; 82040; 82565; 82947; 85014; 85018; 93005

== ENCOUNTER 2023-07-15 11:39 | Outpatient (CLI) | payer MEDICARE, SELFPAY ==
[2023-07-15 12:54] LABS: Basophils Absolute Auto 0.1 K/mm3 (0.0-0.1); Basophils Percent Auto 1.1 % (0.2-1.2); Eosinophils Absolute Auto 0.3 K/mm3 (0-0.3); Eosinophils Percent Auto 2.9 % (0-4.4); Hematocrit 50.8 % (42.0-52.0); Immature Granulocyte Absolute 0.13 K/mm3 (0.00-0.031); Immature Granulocyte Percent A 1.3 % (0-0.5); Lymphocytes Absolute Auto 2.53 K/mm3 (0.9-3.2); Lymphocytes Percent Auto 25.1 % (18.3-44.2); Mean Corpuscular HGB Conc 31.5 g/dl (32-36); Mean Corpuscular Hemoglobin 27.1 pg (26-34); Mean Corpuscular Volume 86.1 fl (80-100); Mean Platelet Volume 9.2 fl (7.4-10.4); Monocytes Absolute Auto 0.9 K/mm3 (0.1-0.6); Monocytes Percent Auto 8.5 % (2.6-8.5); Neutrophils Absolute Auto 6.2 K/mm3 (1.3-6.7); Neutrophils Percent Auto 61.1 % (45.5-73.1); Platelet Count Result 239 k/mm3 (150-375); Red Cell Distribution Width 15.4 % (11.5-14.5); White Blood Count 10.1 K/mm3 (4.5-10.0)
[2023-07-15 13:05] LABS: Albumin Level 4.4 g/dL (3.5-5.1); Estimated Glomerular Filt Rate > 60; Glucose 99 mg/dL (65-110)
[2023-07-15 13:38] LABS: Urine Cotinine NEGATIVE
[2023-07-15 13:48] LABS: Hemoglobin A1C 6.9 % (<5.7)
[2023-07-15 14:33] LABS: MRSA (PCR) DETECTED (NOT DETECTE)
== END 2023-07-15 11:40 | disposition home or self-care (01) ==
LOC: ANHSURGERY 11:42
PROVIDERS: PCP Family Medicine; Visit Provider Orthopaedic Surgery
DX: M17.11 Unilateral primary osteoarthritis, right knee (principal); Z01.818 Encounter for other preprocedural examination
CPT/HCPCS: 80307; 82040; 82565; 82947; 83036; 85025; 87641

== ENCOUNTER 2023-08-03 01:36 | Day surgery (SDC) | payer MEDICARE, SELFPAY ==
[2023-07-15 12:01] VITALS: BP 146/86; PULSE 68; RESP 16; TEMP 36.7; O2SAT 94; BMI 31.0
--- NOTE | 2023-07-15 12:17 | PC.NURSE ---
Report to the Outpatient Waiting Room, entrance under the green pavilion located off [facility], at time _10:00AM on date _08/03/23 . Planned Procedure Time: __12:00PM . Time changes happen often and if your time is changed the preop area will call you the afternoon before. - You and your visitor will be asked to self-screen and do not enter if you have any COVID symptoms. - A mask is optional within the hospital at this time. Patients may have clear liquids (water, carbonated beverages, clear teas, apple juice) until 3 hours prior to surgery with a maximum of 20 ounces. - No food from midnight until time of surgery. Take the following medications with a SIP of water the morning of surgery: ___AMLODIPINE, METOPROLOL, INHALER DO NOT STOP ANY OF YOUR OTHER PRESCRIPTION MEDICATIONS PRIOR TO SURGERY ?EXCEPT THE FOLLOWING Medications to discontinue per physician ____HOLD PLAVIX, ASPIRIN & MELOXICAM 7 DAYS PRE-OP PER DR BURGESS Date to take last dose____07/26/23 Please no make-up, nail malay, hairspray, perfume, deodorant, or body powder the day of surgery. No jewelry (including any body piercings) or valuables the day of surgery, leave them at home. Please take a shower or bath the night before, or the morning of, surgery with an antibacterial soap. Wear comfortable, loose fitting clothing. Children are encouraged to wear pajamas. - Jewelry must be removed prior to entering the operating room. Rings and piercings that are not removed may be cut off. - The hospital will not accept responsibility for valuables. - Please leave all valuables, including medications, at home the day of surgery. If you are going home after surgery, a licensed jitney driver must drive you home. - NO public transportation without another adult if you receive anesthesia. - We recommend that an adult stay with you for 24 hours following discharge. - We also recommend that you do not drive, make important decision, drink alcoholic beverages, or take any drugs that were not prescribed by your health care provider for at least 24 hours after your discharge time. Follow any additional instructions given to you from your surgeon. If you or anyone in your household have experienced Covid symptoms in the past week, please notify your surgeon or the nurse liaison at the phone number below for possible testing. Telephone instructions given to ___PATIENT and asked if any additional questions and then verbalized understanding. Patient advised to call surgeon office or pre surgery nurse liaison [phone] if any additional questions.
[2023-08-03] VITALS (16 sets, daily range): BP systolic 95–146; BP diastolic 56–76; PULSE 58–82; RESP 14–20; TEMP 36–36.6; O2SAT 92–98
--- NOTE | ~2023-08-03 | XR_ITS ---
EXAMINATION: [id number] DATE: 08/03/2023 14:31 INDICATION: Postoperative evaluation following right total knee arthroplasty. TECHNIQUE: Anteroposterior and lateral views of the right knee were obtained. COMPARISON: 04/15/2023 FINDINGS: Right total knee arthroplasty with patellar resurfacing appears well seated and in near anatomic alig nment. No fractures identified. Expected postoperative subcutaneous and intra-articular gas. IMPRESSION: 1. Right total knee arthroplasty, negative for postoperative purposes. Reviewed, dictated and finalized at location A. [employer]
[2023-08-03] MEDS: LACTATED RINGERS 1,000 ML 30 ML IV CONT ×2 (10:45→14:19)
[2023-08-03] MEDS: TRANEXAMIC ACID 1,000MG/ISO100 1,000 MG/100 ML BAG 200 MG IVPB (10:49)
[2023-08-03] MEDS: ACETAMINOPHEN 500 MG TABLET 1000 MG PO ×3 (10:49→23:42)
--- NOTE | 2023-08-03 11:27 | WPDANESEPPF ---
Anes - Initial Pre Proc Eval Procedure: Operation Date: 08/03/23 12:00 Proposed Procedures p Right Total Knee Arthroplasty - Joo Bull MD Date/Time: 08/03/23 11:27 Surgeon: Joo Bull MD Pre Op Diagnosis: primary OA right knee Patient Data Age: 78 Gender: M Height: 1.8 m Weight: 99.3 kg Last Vital Signs Temp 36.6 C 08/03/23 10:29 Pulse 58 L 08/03/23 10:29 Resp 18 08/03/23 10:29 BP 146/72 H 08/03/23 10:29 Pulse Ox 98 08/03/23 10:29 O2 Del Method Room Air 08/03/23 10:29 Allergies Allergy/AdvReac Type Severity Reaction Status Date / Time Penicillins Allergy Rash Verified 08/03/23 10:25 Home Medications Medication Instructions Recorded Confirmed Type aspirin 81 mg tablet,delayed 81 mg PO DAILY 09/02/19 07/22/23 History release (Adult Low Dose Aspirin) clopidogrel 75 mg tablet 75 mg PO DAILY 09/02/19 07/22/23 History omeprazole magnesium 20 mg 20 mg PO DAILY 09/02/19 07/22/23 History capsule,delayed release ([employer] (omeprazole)) lisinopril 20 mg tablet 40 mg PO QAM 08/30/20 07/22/23 History metoprolol succinate 100 mg 100 mg PO QAM 12/13/20 07/22/23 History tablet,extended release 24 hr atorvastatin 40 mg tablet 40 mg PO DAILY #30 tabs 01/09/21 07/22/23 Rx meloxicam 15 mg tablet 15 mg PO DAILY #30 tabs 04/22/21 07/22/23 Rx amlodipine 10 mg tablet 10 mg PO QAM 04/14/22 07/22/23 History albuterol sulfate 90 mcg/actuation 1 puff inhalation Q4H PRN 10/08/22 07/22/23 History aerosol inhaler Shortness Of Breath Or Wheezing ipratropium bromide 21 mcg (0.03 2 spray intranasal BID PRN 07/15/23 07/22/23 History %) nasal spray Congestion Anoro Ellipta 62.5 mcg-25 1 inh inhalation Q24H #60 ea 07/16/23 07/22/23 Rx mcg/actuation powder for inhalation (umeclidinium-vilanterol) tramadol 50 mg tablet 50 mg PO Q6H PRN pain #30 tabs 07/22/23 07/22/23 Rx Laboratory Tests 08/03/23 10:37 Blood Type Pending Antibody Screen Pending Patient hx anesthesia problems: none Family hx anesthesia problems: none Results Review: All pre-operative results and documents have been reviewed as part of the pre-operative evaluation. [facility] Past Medical History Medical History Chronic GERD Cigarette nicotine dependence Emphysema of lung History of stress test Hyperlipidemia Hypertension Knee pain Bilateral Lung nodule Lung nodules Pain and swelling of right lower leg Rhinitis Right knee pain Shortness of breath on exertion Tobacco abuse URI (upper respiratory infection) Surgical History Surgical History H/O shoulder surgery History of appendectomy History of lung biopsy Hx of tonsillectomy S/P coronary artery stent placement Family History Family History Father Lung cancer Mother Breast cancer Colon cancer Sibling Cancer Social History Social History Smoking packs per day: 1.5 Smoking cigarettes per day: 30.0 Years smoked: 60 Smoking pack-years: 90.00 Smoking status: Former smoker Tobacco type: cigarettes Smoking end date: 02/07/23 Alcohol intake: current Drinks per week: 12 Alcohol use details: social Substance use: never Substance use type: marijuana Do You Feel Safe in your Home?: Yes Lack of Transportation: No Lack of Food: Never True Current Housing: I Have Housing Concerned About Future Housing: No Difficulty Paying Gas/Electric Bills: No Difficulty Paying for Meds: No Currently Unemployed: No Education: High School Diploma/GED Difficulty w/ Childcare or Family Care: No Living arrangements: alone Occupation/Education: occupation Additional occupation/education comments: Sales Gender identity (if verbalized by the patient): Male Sexual
--- NOTE | 2023-08-03 11:42 | WPDHPUPDATE1 ---
History and Physical Update Update Date/Time: 08/03/23 11:42 History and Physical has been reviewed, including an updated exam of the patient. There are NO changes in the patient's condition. Risks, benefits, and alternatives have been discussed and questions answered. Patient agrees to proceed with procedure.
--- NOTE | 2023-08-03 12:06 | WPDANESPNB ---
Anes - Peripheral Nerve Block Date/Time: 08/03/23 12:06 I have discussed with the patient/family/POA the placement of a peripheral nerve block for post-operative pain management, including associated risks, benefits, complications, and side effects. Alternative methods of post-operative analgesia were detailed. Questions were solicited and answers provided to the satisfaction of the patient/family/POA. Time-Out: A pre-procedural Time-Out was completed immediately before starting the procedure and confirmed: Patient Identification, Site, Procedure, Patient Position and the Availability of Requisite Equipment. Clinical Indications: Acute post-operative pain management requested by the operative surgeon. Nerve Block Insertion Note Anes-nerve block: adductor canal right Patient position: supine Skin prep: chlorhexidine Needle: 22 gauge, stimulating, insulated echogenic needle. Needle length: 80 mm Technique: ultrasound Injectate: bupivacaine 0.5% with epi 5 mcg/ml (30cc no epi) and dexamethasone (mg) (8) Observations: tolerated well Complications: none Procedure start time:: 1159 Procedure end time:: 1204
[2023-08-03] MEDS: ceFAZolin 2 GM/D5W 50 ML 2 GM/50 ML BAG IVPB ×2 (12:08→20:11)
[2023-08-03] MEDS: GENTAMICIN BONE CEMENT REFOBACIN 1 EACH TOPICAL (12:41)
--- NOTE | 2023-08-03 14:26 | W.PM.PROC2 ---
Procedure Note - Detailed Date of Procedure 08/03/23 Pre-op Diagnosis primary OA right knee Post-op Diagnosis Same Procedure Performed Total knee arthroplasty, right. Surgeon Joo Bull MD Chief Executive Or Managing Director Annette Charles PA-C Anesthesia General and Regional (subsartorial block) Findings Severe varus deformity with varus thrust. Notable medial tibia wear. Minimal medial tibia resection. PS utilized. Large medial release. Femur downsized 1.5 mm. Description of Procedure The patient was brought to the operating room. A general anesthetic was administered. The leg was prepped and draped in the usual sterile fashion. The limb was elevated and the tourniquet inflated to 300 mmHg during initial exposure, and cementation. A longitudinal incision was created along the medial border of the patella and patellar tendon, and a trivector approach to the knee was performed. A large medial release was taken. The knee was then flexed. The osteophytes were carefully removed. The intramedullary guide was placed in the femoral canal. The distal femoral resection was then taken with the oscillating saw. The collateral ligaments were carefully protected. The tibia was carefully exposed. The jig was applied, and the proximal tibia was resected according to preoperative plan. The knee was balanced in extension. Appropriate releases were taken where needed. The anterior cruciate ligament and meniscal remnants were removed. The posterior cruciate ligament was excised. The patella was measured. Patellar resection was carried out with the oscillating saw. The lug holes drilled. The femur was sized and rotation assessed using a combination of gap balancing, posterior referencing, and the AP axis. The 4 in 1 cutting block was used to finish the femoral cuts after equal gaps were assured. The box cut was taken. The osteophytes were carefully removed from the back of the knee. The knee was copiously irrigated with antibiotic solution periodically throughout the procedure. The meniscal remnants were removed. The spacer block was used to confirm equal flexion and extension gaps. 5 needle penetrations performed. The tibia was sized and broached. The bony surfaces were prepared for cementing with pulsatile lavage. The real tibial and femoral and patellar components were cemented into position. Excess cement was carefully removed. Patellar tracking was carefully assessed. No additional releases were required. Dilute sterile Betadine soak performed for three minutes. Copious irrigation then performed. The wound was closed with #1 Vicryl suture, #2, 2-0, and 3-0 barbed suture, followed by Steri-Strips. A sterile bulky dressing was applied. Meticulous hemostasis was maintained throughout the procedure. The bipolar cautery device was used. The pain relieving mixture was injected into the periarticular tissues during the procedure. There were no complications. The patient was extubated and brought to the recovery room in stable condition after the application of sterile dressing with Ford bandage. Implants [email or web address] Triathlon knee system, low profile cemented tibia size 6, cemented cruciate retaining femoral component size 6 ,and a 16 mm posterior stabilized polyethylene insert. 38 mm asymmetric all polyethylene patella component. Estimated Blood Loss 50 Drains No Pathology None sent Complications No immediate complications Condition Stable Disposition PACU [facility] Billing Surgery - Charge Forward: Surgery Billing
--- NOTE | 2023-08-03 14:35 | SUR.PHASEI ---
Notified Dr. Otero of irregular heart rhythm in PACU. Dr. Otero stated this is patient's baseline and no EKG or further orders needed.
[2023-08-03] MEDS: fentaNYL CITRATE INJ (*CRX) 100 MCG/2 ML VIAL 25 MCG IV PUSH ×4 (14:47→15:32)
--- NOTE | 2023-08-03 16:09 | ADMGEN ---
This patient, Gigi Barfield, was admitted to 2 Medical Room 259-01. Patient/family oriented to hospital policies and general routines including ID bracelet, bed and alarms, visiting hours, pain management, procedures, bathroom and other care routines, personal items, smoking policy, room service/diet, and visiting hours. Information on how to activate the Rapid Response Team has been discussed. Patient/Family are encouraged to report perceived risks to care and to ask questions if they do not understand what they are told or what they should do.
[2023-08-03] MEDS: SENNA/DOCUSATE SODIUM TABLET 2 TAB PO (16:52)
[2023-08-03] MEDS: oxyCODONE HCL (*CRX) 5 MG TAB IR PO (20:10)
[2023-08-03] MEDS: CYCLOBENZAPRINE HCL 10 MG TABLET PO (20:11)
[2023-08-04] MEDS: ceFAZolin 2 GM/D5W 50 ML 2 GM/50 ML BAG IVPB (03:53)
[2023-08-04] MEDS: traMADol HCL (*CRX) 50 MG TABLET PO (03:54)
[2023-08-04] MEDS: ACETAMINOPHEN 500 MG TABLET 1000 MG PO (04:28)
[2023-08-04 04:35] VITALS: BP 109/66; PULSE 62; RESP 20; TEMP 36; O2SAT 94
[2023-08-04 05:42] LABS: Basophils Percent Auto 0.2 % (0.2-1.2); Hematocrit 42.9 % (42.0-52.0); Immature Granulocyte Absolute 0.12 K/mm3 (0.00-0.031); Immature Granulocyte Percent A 0.8 % (0-0.5); Lymphocytes Absolute Auto 1.55 K/mm3 (0.9-3.2); Lymphocytes Percent Auto 10.7 % (18.3-44.2); Mean Corpuscular HGB Conc 32.6 g/dl (32-36); Mean Corpuscular Hemoglobin 28.7 pg (26-34); Mean Corpuscular Volume 87.9 fl (80-100); Mean Platelet Volume 9.5 fl (7.4-10.4); Monocytes Absolute Auto 0.8 K/mm3 (0.1-0.6); Monocytes Percent Auto 5.6 % (2.6-8.5); Neutrophils Percent Auto 82.7 % (45.5-73.1); Platelet Count Result 216 k/mm3 (150-375); Red Blood Count 4.88 M/mm3 (4.6-6.20); Red Cell Distribution Width 15.8 % (11.5-14.5); White Blood Count 14.5 K/mm3 (4.5-10.0)
[2023-08-04 05:52] LABS: Anion Gap 9 mmol/L (8-16); Blood Urea Nitrogen 25 mg/dL (9-20); Calcium 9.1 mg/dL (8.4-10.2); Carbon Dioxide 23 mmol/L (22-30); Chloride 102 mmol/L (98-107); Estimated CRCL calculation 61 ml/min; Estimated Glomerular Filt Rate > 60; Glucose 223 mg/dL (65-110); Potassium 4.3 mmol/L (3.4-5.0); Sodium 134 mmol/L (137-145)
[2023-08-04] MEDS: oxyCODONE HCL (*CRX) 5 MG TAB IR PO (07:42)
[2023-08-04] MEDS: predniSONE 5 MG TABLET PO (07:42)
[2023-08-04 08:26] VITALS: BP 125/68; PULSE 69; RESP 18; TEMP 36.5; O2SAT 95
[2023-08-04 09:12] VITALS: PULSE 68
[2023-08-04] MEDS: METOPROLOL SUCCINATE EXT REL 100 MG TABCR PO (09:12)
[2023-08-04] MEDS: amLODIPine BESYLATE 5 MG TABLET 10 MG PO (09:14)
[2023-08-04] MEDS: MELOXICAM 7.5 MG TABLET 15 MG PO (09:15)
[2023-08-04] MEDS: lisinopriL 20 MG TABLET 40 MG PO (09:15)
[2023-08-04] MEDS: ATORVASTATIN 40 MG TABLET PO (09:15)
[2023-08-04] MEDS: ASPIRIN 81 MG ENTERIC TABLET PO (09:15)
[2023-08-04] MEDS: PANTOPRAZOLE 40 MG TABLET PO (09:16)
--- NOTE | 2023-08-04 09:24 | PM.DS ---
DS: Admitting Diagnosis Discharge Date 08/04/23 Admitting Diagnosis OA knee Right DS: Discharge Diagnosis Discharge Diagnosis (1) Status post total right knee replacement: Code(s): Z96.651 - Presence of right artificial knee joint Status: Acute Assessment and Plan: Postop day 1: Right total knee arthroplasty. Patient tolerated procedure well. No complications. Pain manageable with pain medication. No numbness or tingling. We had a lengthy discussion regarding postoperative wound care, limitations, expectations, and exercises. Patient shows good understanding. He has had initial physical therapy and is tolerating it well. Patient has followup appointment with Dr. Bull in 3 weeks. DS: Summary Hospital Course Reason for hospitalization: Total knee arthroplasty Hospital Course: Patient tolerated procedure well. Has had initial PT/OT. No complications. Pain well managed. Status at Discharge Functional status at discharge: uses cane/walker Overall status at discharge: patient is progressing back to baseline Time Spent with Patient Time attestation: Total time spent providing and/or coordinating discharge services: Exam Narrative: 78 y/o Normal weight Male. Resting comfortably in chair. No acute distress. A&O x3. Wearing compression socks bilaterally. Dressing intact with mild quarter sized bloody drainage. Moderate swelling. Small area of ecchymosis. No erythema. No hematoma. Good early range of motion. Calf nontender. Neurologic status intact. No varicosities. Distal pulses palpable. DS: Data Data Completed and Pending Labs on day of discharge: Labs from last 24 hours 08/04/23 08/03/23 04:46 10:37 WBC 14.5 H RBC 4.88 Hgb 14.0 Hct 42.9 MCV 87.9 MCH 28.7 MCHC 32.6 RDW 15.8 H Plt Count 216 MPV 9.5 Immature Gran % (Auto) 0.8 H Neut % (Auto) 82.7 H Lymph % (Auto) 10.7 L Treasure % (Auto) 5.6 Eos % (Auto) 0.0 Baso % (Auto) 0.2 Lymph # (Auto) 1.55 Treasure # (Auto) 0.8 H Eos # (Auto) 0.0 Baso # (Auto) 0.0 Abs Immat Gran (auto) 0.12 H Absolute Neuts (auto) 12.0 H Absolute Nucleated RBC 0.0 Nucleated RBC % 0.0 Sodium 134 L Potassium 4.3 Chloride 102 Carbon Dioxide 23 Anion Gap 9 BUN 25 H Creatinine 1.10 Estim Creat Clear Calc 61 Estimated GFR > 60 Glucose 223 H Calcium 9.1 Blood Type O Positive Antibody Screen Negative Discharge Plan Discharge Patient Disposition: Home, Self-Care Discharge Instructions: See green instruciton sheets Patient Instructions: Clopidogrel (By mouth) Stand Alone Forms: General Discharge Instructions Follow-up/Referrals: Annette Charles PA [Physician Line Fixer] - Discharge Medications: New prednisone 5 mg tablet 5 mg PO DAILY 21 Days Qty: 21 0RF oxycodone-acetaminophen 5-325 mg tablet 1 - 2 tablet PO Q4-6H MDD 6 PRN (Reason: pain) Qty: 30 0RF Continued albuterol sulfate 90 mcg/actuation HFA aerosol inhaler 1 puff inhalation Q4H PRN (Reason: Shortness Of Breath Or Wheezing) tramadol 50 mg tablet 50 mg PO Q6H PRN (Reason: pain) Qty: 30 0RF lisinopril 20 mg tablet 40 mg PO QAM amlodipine 10 mg tablet 10 mg PO QAM clopidogrel 75 mg tablet 75 mg PO DAILY Hold Instructions: Resume on 03/07/20. may restart in 24 hours omeprazole magnesium [Acid Dressmaker Or Tailor (omeprazole)] 20 mg capsule,delayed release(DR/EC) 20 mg PO DAILY aspirin [Adult Low Dose Aspirin] 81 mg tablet,delayed release (DR/EC) 81 mg PO DAILY Hold Instructions: Resume on 03/07/20. may restart in 24 hours metoprolol succinate 100 mg tablet extended release 24 hr 100 mg PO QAM ipratropium bromide 21 mcg (0.03 %) spray,non-aerosol 2 spray intranasal BID PRN (Reason: Congestion) Rx Instructions: administer into each nostril atorvastatin 40 mg tablet 40 mg PO DAILY Qty: 30 5RF meloxicam 15 mg ta
== END 2023-08-04 10:30 | disposition home or self-care (01) ==
LOC: ANHSURGERY 11:38 → ANH2MED 15:53
PROVIDERS: Physician Assistant Surgical; Visit Provider Orthopaedic Surgery
PROC: (CPT 27447; principal; 2023-08-03 12:00)
DX: M17.11 Unilateral primary osteoarthritis, right knee (principal); G89.18 Other acute postprocedural pain; J43.9 Emphysema, unspecified; I10 Essential (primary) hypertension; E78.5 Hyperlipidemia, unspecified; K21.9 Gastro-esophageal reflux disease without esophagitis; Z87.891 Personal history of nicotine dependence; E66.9 Obesity, unspecified; Z68.30 Body mass index [BMI] 30.0-30.9, adult; Z79.82 Long term (current) use of aspirin; Z79.02 Long term (current) use of antithrombotics/antiplatelets; Z79.51 Long term (current) use of inhaled steroids
CPT/HCPCS: 27447; 64447; 36415; 73560; 80048; 80307; 82040; 82565; 82947; 83036; 85025; 86850; 86900; 86901; 87641; 97110; 97161; 97165; 97530; 97535; A9270; C1713; C1776; J0171; J0690; J1100; J1170; J1885; J2250; J2270; J2371; J2405; J2704; J2795; J3010; J7120; J7512

== ENCOUNTER 2023-08-17 08:21 | Outpatient (RCR) | payer MEDICARE, SELFPAY ==
--- NOTE | 2023-08-17 10:02 | OPREHPOC ---
Outpatient Therapy Plan of Care This is a Multidisciplinary Plan of Care that may contain components documented by all disciplines (PT, OT, and ST.) PT Problem 1 PT Problem #1 Knowledge Deficit PT Goal 1 Goal Patient to demonstrate independence with HEP Target Visit 6 PT Problem 2 PT Problem #2 Pain PT Goal 1 Goal 1. Patient to report highest pain at 2/10 2. Patient to report ability to sleep with no disturbance due to R knee pain Target Visit 12 PT Problem 3 PT Problem #3 Impaired Range of Motion PT Goal 1 Goal Patient to demonstrate 0-120 deg of R knee AROM to improve ability to ambulate steps into his home. Target Visit 12 PT Problem 4 PT Problem #4 Impaired Strength PT Goal 1 Goal Patient to demonstrate 5/5 R LE strength in order to return to prolonged ambulation with no AD Target Visit 12 PT Problem 5 PT Problem #5 Impaired Functional Mobil PT Goal 1 Goal 1. Patient to demonstrate 20% improvement in LEFS 2. Patient to complete 800' with no AD during 6 min walk test 3. Patient to demonstrate 43cm of R knee circumference to improve functional mobility 4. Patient to report ability to navigate steps into home with step over step pattern Target Visit 12
--- NOTE | 2023-08-17 10:02 | PTOPEVAL1 ---
Assessment and note entered by Danita Tello DPT Evaluation Information Assessment Status Evaluation Diagnosis R knee pain Onset 08/03/23 Subjective Information Patient underwent R TKA on 08/03/23. He reports he was given HEP by the MD. He returns to MD on . He reports pain has improved over the last 3 days. He reports he is elevating and icing. He reports the week before surgery he had to start using a walker due to pain. Today he presents with use of walker. He reports pain with walking, standing for long periods of time, getting up from a chair and is having difficulty sleeping. He reports he enjoys to [employer] and [employer]. Reported Pain Level Pain Score 7: Self Report Assessment PT Clinical Summary Mr. Barfield is a 78 year old male who presents to PT with R knee pain s/p R TKA. Patient demonstrates decreased R knee ROM, decreased R LE strength and impaired gait limiting his ability to navigate steps into his home, ambulate prolonged distances, perform house hold tasks and sleep. Patient would benefit from skilled PT to address impairments and return to PLOF. Plan of Care Interventions Electrical Stimulation,Gait Training,Hot Pack/Cold Pack PT Services Indicated Yes Treatment Frequency and 3x weekly for 12 visits Duration These treatments will address the objective and functional deficits as defined above. The patient will be advanced safely and appropriately in order for the patient to progress towards his/her prior level of function. Additional exercises will be introduced and as well as a comprehensive home exercise program upon discharge, if needed, ?to ensure carryover of functional gains achieved in the clinic. This treatment plan has been reviewed and agreement upon by the patient.
--- NOTE | 2023-08-17 10:02 | PTOPEVAL1 ---
Assessment and note entered by Danita Tello DPT Evaluation Information Assessment Status Evaluation Diagnosis R knee pain Onset 08/03/23 Subjective Information Patient underwent R TKA on 08/03/23. He reports he was given HEP by the MD. He returns to MD on . He reports pain has improved over the last 3 days. He reports he is elevating and icing. He reports the week before surgery he had to start using a walker due to pain. Today he presents with use of walker. He reports pain with walking, standing for long periods of time, getting up from a chair and is having difficulty sleeping. He reports he enjoys to [employer] and [employer]. Reported Pain Level Pain Score 7: Self Report Assessment PT Clinical Summary Mr. Barfield is a 78 year old male who presents to PT with R knee pain s/p R TKA. Patient demonstrates decreased R knee ROM, decreased R LE strength and impaired gait limiting his ability to navigate steps into his home, ambulate prolonged distances, perform house hold tasks and sleep. Patient would benefit from skilled PT to address impairments and return to PLOF. Plan of Care Interventions Electrical Stimulation,Gait Training,Hot Pack/Cold Pack,Manual Therapy,Neuro Re-education,Patient/ Caregiver Educati,Therapeutic Activities, Therapeutic Exercise PT Services Indicated Yes Treatment Frequency and 3x weekly for 12 visits Duration These treatments will address the objective and functional deficits as defined above. The patient will be advanced safely and appropriately in order for the patient to progress towards his/her prior level of function. Additional exercises will be introduced and as well as a comprehensive home exercise program upon discharge, if needed, ?to ensure carryover of functional gains achieved in the clinic. This treatment plan has been reviewed and agreement upon by the patient.
--- NOTE | 2023-08-26 09:27 | PCPTNOTE ---
pt called and cancelled giving no reason
--- NOTE | 2023-08-31 09:41 | PCPTNOTE ---
patient called stating he wasnt going to make it in today
--- NOTE | 2023-09-04 07:11 | PCPTNOTE ---
patient called to state he was unable to make it in
== END 2023-08-28 20:00 | disposition home or self-care (01) ==
LOC: CHSPT 08:21
PROVIDERS: Visit Provider Orthopaedic Surgery
DX: Z47.1 Aftercare following joint replacement surgery (principal); Z96.651 Presence of right artificial knee joint
CPT/HCPCS: 97016; 97110; 97150; 97161

== ENCOUNTER 2023-08-24 09:40 | Outpatient (CLI) | payer MEDICARE, SELFPAY ==
--- NOTE | ~2023-08-24 | XR_ITS ---
Right Knee Technique: AP, lateral, and sunrise views were obtained. Clinical History: Arthroplasty follow-up COMPARISON: 04/14/2022 Findings: No fracture or dislocation is seen. Right knee arthroplasty in place, without evidence of h ardware complication. Soft tissues are unremarkable. No joint effusion is seen. Impression: No acute abnormality. Right knee arthroplasty in place. Reviewed, dictated and finalized at location M. OR JAVA DEVELOPER Impression: No acute abnormality. Right knee arthroplasty in place.
== END 2023-08-24 09:41 | disposition home or self-care (01) ==
PROVIDERS: PCP Family Medicine; Visit Provider Orthopaedic Surgery
DX: Z96.651 Presence of right artificial knee joint (principal)
CPT/HCPCS: 73562

== ENCOUNTER 2023-08-28 09:13 | Outpatient (CLI) | payer MEDICARE, SELFPAY ==
[2023-08-28 09:33] LABS: Basophils Absolute Auto 0.08 K/mm3 (0.00-0.10); Basophils Percent Auto 1.1 % (0.0-1.0); Eosinophils Absolute Auto 0.26 K/mm3 (0.02-0.50); Eosinophils Percent Auto 3.5 % (1.0-6.0); Hematocrit 42.9 % (37.0-46.0); Hemoglobin 13.3 g/dL (12.4-15.3); Immature Granulocyte Percent A 1.3 % (0.0-0.0); Lymphocytes Absolute Auto 2.57 K/mm3 (1.10-4.50); Lymphocytes Percent Auto 34.5 % (18.0-42.0); Mean Corpuscular Hemoglobin 27.1 pg (27.0-31.0); Mean Corpuscular Volume 87.6 fL (78.0-102.0); Mean Platelet Volume 8.9 fl (8.7-11.0); Monocytes Absolute Auto 0.63 K/mm3 (0.10-0.90); Monocytes Percent Auto 8.5 % (2.0-11.0); Neutrophils Absolute Auto 3.8 K/mm3 (1.7-7.2); Neutrophils Percent Auto 51.1 % (50.0-70.0); Platelet Count Result 282 K/mm3 (150-420); White Blood Count 7.5 K/mm3 (4.8-10.8)
[2023-08-28 10:10] LABS: Alanine Aminotransferase 19 U/L (16-63); Albumin Level 3.5 g/dL (3.4-5.0); Alkaline Phosphatase 127 U/L (46-116); Anion Gap 10 mmol/L (8-16); Aspartate Amino Transferase 10 U/L (15-37); Bilirubin,Total 0.9 mg/dL (0.00-1.00); Blood Urea Nitrogen 20 mg/dL (7-18); Calcium 9.1 mg/dL (8.5-10.1); Carbon Dioxide 28 mmol/L (21-32); Chloride 106 mmol/L (98-108); Cholesterol 113 mg/dL (0-200); Estimated Glomerular Filt Rate > 60; Glucose 100 mg/dL (70-99); HDL Direct 51 mg/dL (40-60); LDL Cholesterol Calculated 36 mg/dL (<130); Osmolality Calculated 300 mOsm/kg (285-295); Potassium 4.2 mmol/L (3.5-5.1); Sodium 144 mmol/L (136-145); Total Protein 6.5 g/dL (6.4-8.2); Triglycerides 129 mg/dL (0-150)
== END 2023-08-28 09:14 | disposition home or self-care (01) ==
LOC: CHSLAB 09:15
PROVIDERS: PCP Family Medicine; Visit Provider Family Medicine
DX: I65.29 Occlusion and stenosis of unspecified carotid artery (principal)
CPT/HCPCS: 36415; 80053; 80061; 85025

== ENCOUNTER 2023-09-21 08:44 | Outpatient (CLI) | payer MEDICARE, SELFPAY ==
--- NOTE | ~2023-09-21 | XR_ITS ---
XR knee RT 3V 09/21/2023 09:05 Indication: Recent knee replacement. Procedure: 3 views right knee Comparison: 08/24/2023 Findings: There is a right total knee arthroplasty. No fracture, subluxation or dislocation. No signi ficant joint effusion. Prosthesis well seated. Mild prepatellar soft tissue swelling, unchanged. Impression: 1: No significant bone or joint abnormality. Reviewed, dictated and finalized at location B. Impression: 1: No significant bone or joint abnormality.
== END 2023-09-21 08:45 | disposition home or self-care (01) ==
LOC: ANHIMG 08:46
PROVIDERS: PCP Family Medicine; Visit Provider Orthopaedic Surgery
DX: Z96.651 Presence of right artificial knee joint (principal)
CPT/HCPCS: 73562

== ENCOUNTER 2023-12-18 14:23 | Outpatient (CLI) | payer MEDICARE, SELFPAY ==
[2023-12-18 14:42] LABS: Basophils Absolute Auto 0.11 K/mm3 (0.00-0.10); Basophils Percent Auto 1.3 % (0.0-1.0); Eosinophils Absolute Auto 0.14 K/mm3 (0.02-0.50); Eosinophils Percent Auto 1.6 % (1.0-6.0); Hematocrit 46.4 % (37.0-46.0); Hemoglobin 15.1 g/dL (12.4-15.3); Immature Granulocyte Absolute 0.08 K/mm3 (0.00-0.00); Immature Granulocyte Percent A 0.9 % (0.0-0.0); Lymphocytes Absolute Auto 2.87 K/mm3 (1.10-4.50); Lymphocytes Percent Auto 33.6 % (18.0-42.0); Mean Corpuscular HGB Conc 32.5 g/dL (32-36); Mean Corpuscular Hemoglobin 26.7 pg (27.0-31.0); Mean Platelet Volume 8.6 fl (8.7-11.0); Monocytes Absolute Auto 0.76 K/mm3 (0.10-0.90); Monocytes Percent Auto 8.9 % (2.0-11.0); Neutrophils Absolute Auto 4.57 K/mm3 (1.70-7.20); Neutrophils Percent Auto 53.7 % (50.0-70.0); Platelet Count Result 268 K/mm3 (150-420); Red Blood Count 5.66 M/mm3 (4.70-6.10); Red Cell Distribution Width 15.8 % (11.6-14.4); White Blood Count 8.5 K/mm3 (4.8-10.8)
[2023-12-18 15:16] LABS: Alanine Aminotransferase 15 U/L (16-63); Albumin Level 3.4 g/dL (3.4-5.0); Alkaline Phosphatase 130 U/L (46-116); Anion Gap 9 mmol/L (4-12); Aspartate Amino Transferase 12 U/L (15-37); Bilirubin,Total 0.5 mg/dL (0.00-1.00); Blood Urea Nitrogen 11 mg/dL (7-18); Calcium 9.2 mg/dL (8.5-10.1); Carbon Dioxide 27 mmol/L (21-32); Chloride 103 mmol/L (98-108); Cholesterol 107 mg/dL (0-200); Estimated Glomerular Filt Rate > 60; Glucose 99 mg/dL (70-99); HDL Direct 39 mg/dL (40-60); LDL Cholesterol Calculated 52 mg/dL (<130); Osmolality Calculated 287 mOsm/kg (285-295); Potassium 3.9 mmol/L (3.5-5.1); Sodium 139 mmol/L (136-145); Total Protein 6.7 g/dL (6.4-8.2); Triglycerides 81 mg/dL (0-150)
[2023-12-18 16:09] LABS: Thyroid Stimulating Hormone Reflex 1.45 u/IU/mL (0.36-3.74)
== END 2023-12-18 14:24 | disposition home or self-care (01) ==
PROVIDERS: PCP Family Medicine; Visit Provider Family Medicine
DX: E03.9 Hypothyroidism, unspecified (principal); I10 Essential (primary) hypertension
CPT/HCPCS: 36415; 80053; 80061; 84443; 85025

== ENCOUNTER 2024-03-28 13:01 | Outpatient (CLI) | payer MEDICARE, SELFPAY ==
--- NOTE | ~2024-03-28 | CT_ITS ---
CT Scan of the Chest without Contrast: Clinical Indication: Lung cancer screening, nicotine dependence Technique: Contiguous sections were acquired throughout the chest without intravenous contrast. Dose reduction technique was used on this scan by utilizing automated exposure control and iterative recon struction technique. The dose-length product (DLP) was 179.24 mGy-cm. COMPARISON: 03/24/2023 Findings: Stable mildly enlarged mediastinal lymph nodes, most notably at the precarinal/right paratracheal str ipe, and at the posterior superior mediastinum. No aortic aneurysm. There is no evidence of pleural or pericardial effusion. Stable 1.7 x 1.3 cm nodule in the superior segment right lower lobe. Advanced COPD with right upper l obe scarring and/or postoperative change is stable from prior exam. Stable 3 mm left upper lobe pulmo nary nodule (axial image 45). Stable 8 mm left upper lobe pulmonary nodule (axial image 57). Images through the upper abdomen reveal questionable very subtle gallstones. Impression: Lung RADS 2: Benign appearance. 12 month follow-up screening CT advised. Reviewed, dictated and finalized at location M. Impression: Lung RADS 2: Benign appearance. 12 month follow-up screening CT advised.
== END 2024-03-28 13:02 | disposition home or self-care (01) ==
PROVIDERS: PCP Family Medicine; Visit Provider Nurse Practitioner Family
DX: Z12.2 Encounter for screening for malignant neoplasm of respiratory organs (principal); Z87.891 Personal history of nicotine dependence
CPT/HCPCS: 71271

== ENCOUNTER 2024-10-20 14:53 | Outpatient (CLI) | payer MEDICARE, SELFPAY ==
--- NOTE | ~2024-10-20 | XR_ITS ---
XR sacroiliac joints min 3V Ordering provider: Won Almaraz DO History: . left si jt pain x 2 weeks, sacrococcygeal disorder . Comparison: None. FINDINGS: BONES: No acute fracture or dislocation. JOINTS: The bilateral sacroiliac joint spaces appear slightly narrowed. Possible fusion of the sacroi liac joints is seen posteriorly. No bony erosions. SOFT TISSUES: Unremarkable. IMPRESSION: NO ACUTE OSSEOUS ABNORMALITY. Bilateral sacroiliitis. Reviewed, dictated and finalized at location A.
[2024-10-20 15:27] LABS: Basophils Absolute Auto 0.12 K/mm3 (0.00-0.10); Basophils Percent Auto 1.4 % (0.0-1.0); Eosinophils Absolute Auto 0.18 K/mm3 (0.02-0.50); Eosinophils Percent Auto 2.1 % (1.0-6.0); Hematocrit 50.1 % (37.0-46.0); Immature Granulocyte Absolute 0.11 K/mm3 (0.00-0.00); Immature Granulocyte Percent A 1.3 % (0.0-0.0); Lymphocytes Absolute Auto 3.06 K/mm3 (1.10-4.50); Lymphocytes Percent Auto 35.1 % (18.0-42.0); Mean Corpuscular HGB Conc 31.9 g/dL (32-36); Mean Corpuscular Hemoglobin 27.2 pg (27.0-31.0); Mean Corpuscular Volume 85.1 fL (78.0-102.0); Mean Platelet Volume 8.5 fl (8.7-11.0); Monocytes Absolute Auto 0.63 K/mm3 (0.10-0.90); Monocytes Percent Auto 7.2 % (2.0-11.0); Neutrophils Absolute Auto 4.61 K/mm3 (1.70-7.20); Neutrophils Percent Auto 52.9 % (50.0-70.0); Platelet Count Result 260 K/mm3 (150-420); Red Blood Count 5.89 M/mm3 (4.70-6.10); Red Cell Distribution Width 15.8 % (11.6-14.4); White Blood Count 8.7 K/mm3 (4.8-10.8)
[2024-10-20 15:54] LABS: Alanine Aminotransferase 15 U/L (16-63); Albumin Level 3.5 g/dL (3.4-5.0); Alkaline Phosphatase 164 U/L (46-116); Anion Gap 9 mmol/L (4-12); Aspartate Amino Transferase 11 U/L (15-37); Bilirubin,Total 0.7 mg/dL (0.00-1.00); Blood Urea Nitrogen 10 mg/dL (7-18); Calcium 8.8 mg/dL (8.5-10.1); Carbon Dioxide 29 mmol/L (21-32); Chloride 104 mmol/L (98-108); Cholesterol 113 mg/dL (0-200); Estimated Glomerular Filt Rate > 60; Glucose 107 mg/dL (70-99); HDL Direct 48 mg/dL (40-60); LDL Cholesterol Calculated 52 mg/dL (<130); Osmolality Calculated 293 mOsm/kg (285-295); Potassium 4.4 mmol/L (3.5-5.1); Prostate Specific Antigen 0.6 ng/mL (< OR = 4.0); Sodium 142 mmol/L (136-145); Total Protein 6.9 g/dL (6.4-8.2); Triglycerides 67 mg/dL (0-150)
--- OUTSIDE RECORDS SUMMARY | 2024-10-20 16:05 | XMS_ITS | Clinical Summary ---
Author Organization [facility] Address [address] [place] [address] Care Team Providers Care Services Program Manager Name Role Phone Brock Wu MD Primary Care Provider Allergies Active Allergy Reactions Criticality Noted Date Comments Penicillins Rash Medium 05/15/2017 Medications omeprazole (PriLOSEC) 20 mg capsuleIndicati ons:Treatment of Non-Bleeding Gastric Disorder Take 20 mg by mouth every morning Active aspirin 81 mg enteric coated tabletIndicatio ns:prevention of thrombosis Take 81 mg by mouth every morning Active atorvastatin (LIPITOR) 40 mg tabletIndicatio ns:hyperlipidem ia every morning 1 Active lisinopriL (PRINIVIL,ZESTR IL) 40 mg tabletIndicatio ns:hypertension every morning 1 Active amLODIPine (NORVASC) 5 mg tabletIndicatio ns:hypertension 10 mg every morning 1 Active metoprolol XL (TOPROL-XL) 100 mg 24 hr tabletIndicatio ns:hypertension Take 100 mg by mouth every morning 1 Active meloxicam (MOBIC) 15 mg tabletIndicatio ns:Osteoarthrit is every morning 1 Active UNABLE TO FINDIndications :for supplement every morning Med Name: Balance of Nature Active traMADoL (ULTRAM) 50 mg tablet Take 1 tablet (50 mg total) by mouth every 6 (six) hours as needed for pain 5 tablet 1 Active acetaminophen (TYLENOL) 500 mg tablet Take 1 tablet (500 mg total) by mouth every 6 (six) hours as needed for pain 30 tablet 1 Active bacitracin 500 unit/gram ointment Apply topically 2 (two) times a day 15 g 1 Active clopidogreL (PLAVIX) 75 mg tablet 2 Active Anoro Ellipta 62.5-25 mcg/actuation blister with device 2 Active Active Problems Problem Noted Date Diagnosed Date Carotid disease, bilateral 05/10/2021 Hypertension 05/10/2021 Melanoma of back 05/09/2021 Overview (05/09/2021): Added automatically from request for surgery [id number] Hyperlipidemia, mixed 05/24/2019 Claudication 08/11/2018 Immunizations Immunization Administration Dates Next Due Influenza, Quadrivalent, Spl it, Intramuscular 03/09/2019 Influenza, Trivalent, IM (MDV) 04/07/2018,2013,07/09/2013 Surgical History Surgery Date Site/Laterality Comments APPENDECTOMY 06/29/1962 - 06/28/1963 ROTATOR CUFF REPAIR 06/29/1967 - 06/28/1968 Left CAROTID ARTERY ANGIOPLASTY 06/29/2016 - 06/28/2017 stent TONSILLECTOMY at 14 y/o Medical History Medical History Date Comments Hypertension Arthritis Lung disease GERD (gastroesophageal reflux disease) Chronic pain disorder Family History Medical History Relation Name Comments Anesthesia problems Neg Hx Social History Tobacco Use Types Packs/Day Years Used Date Smoking Tobacco: Every Day Cigarettes 0.5 59.3 Started: 1963 Smokeless Tobacco: Never AUDIT-C Answer Date Recorded Q1: How often do you have a drink containing alc ohol? 2-3 times a week 05/15/2021 Q2: How many drinks containi ng alcohol do you have on a typical day when you are drinking? 3 or 4 05/15/2021 Q3: How often do you have si x or more drinks on one occasion? Never 05/15/2021 Sex and Gender Information Value Date Recorded Sex Assigned at Not on file Legal Sex Male 11:26 AM CDT Gender Identity Not on file Sexual Orientation Not on file Obstetrics History Last Filed Vital Signs Vital Sign Reading Time Taken Comments Blood Pressure 144/88 05/15/2021 2:10 PM DOOR TO DOOR SELLING AGENT Pulse 54 05/15/2021 2:10 PM DOOR TO DOOR SELLING AGENT Temperature 36 C (96.8 F) 05/15/2021 1:15 PM DOOR TO DOOR SELLING AGENT Respiratory Rate 12 05/15/2021 2:10 PM DOOR TO DOOR SELLING AGENT Oxygen Saturation 95% 05/15/2021 2:10 PM DOOR TO DOOR SELLING AGENT Inhaled Oxygen Concentration - - Weight 96.6 kg (213 lb) 10/31/2021 11:10 AM CDT Height 180.3 cm (5' 11 ) 10/31/2021 11:10 AM CDT Body Mass Index 29.71 10/31/2021 11:10 AM CDT Plan of Treatment Health Maintenance Due Date Last Done Comments Depression Screening 1945 Hepatitis C Screening 1945 DTaP/Tdap/Td Vaccine (1 - Tdap) 1958 Hepatitis B Screening 1965 Pneumococcal vaccine 65+ (1 of 2 - PCV) 1966 Zoster Vaccine (1 of 2) 1997 Abdominal Aortic Aneurysm (A AA) Screen 02/23/2012 Well Visit 65+ 02/23/2012 Fall Risk Assessment 05/15/2022 05/15/2021 Covid-19 Vaccine (3 - 2023-2 5 season) 2024 10/05/2020, 09/05/2020 Influenza Vaccine (#1) 2024 , 04/07/2018, 03/24/2014, Additional history exists Insurance [place] [address] Care Teams Services Program Manager Relationship Specialty Start Date End Date Brock Wu MD PCP - General Family Medicine 04/18/21
--- OUTSIDE RECORDS SUMMARY | 2024-10-20 16:05 | XMS_ITS | Encounter Summary ---
Author Organization [facility] Address [address] [place] [address] Care Team Providers Care Oracle Financials Consultant Name Role Phone Sheng Vizcaino MD Primary Care Provider [phone] Familia Pereyra MD Unavailable [phone] Sergey Byrd APRN Unavailable [phone] Brock Wu MD Primary Care Provider Won Almaraz DO Primary Care Provider [phone] Encounter Details Date Type Department Care Team (Late st Contact Info) Description 12/04/2018 Abstract SFL CONVERSION [address] [place] [address] , Generic ConversionMD Social History Tobacco Use Types Packs/Day Years Used Date Smoking Tobacco: Every Day Cigarettes Smokeless Tobacco: Never Alcohol Use Standard Drinks/Week Comments Yes 16.7 (1 standard drink = 0.6 oz pure alcohol) drinks weekly Sex and Gender Information Value Date Recorded Sex Assigned at Not on file Legal Sex Male 10:35 PM MERGERS AND ACQUISITIONS MANAGER Gender Identity Not on file Sexual Orientation Not on file documented as of this encounter Plan of Treatment Not on file documented as of this encounter Visit Diagnoses Not on filedocumented in this encounter Care Teams [employer] Financ[employer] Consultant Relationship Specialty Start Date End Date Sheng Vizcaino MD [address] [place] [phone] PCP - General FAMILY PRACTICE 05/15/17 11/19/20 Brock Wu MD [address] [place] [address] PCP - General FAMILY PRACTICE 11/20/20 02/21/24 Won Almaraz DO [address] [place] [address] PCP - General FAMILY PRACTICE 02/22/24 Familia Pereyra MD [address] [place] [phone] Vascular/Passenger Screener CARDIOVASCULAR DISEASE 05/15/17 Sergey Byrd APRN [address] [place] [phone] Nurse Practitioner NURSE PRACTITIONER 08/11/18 documented as of this encounter
--- OUTSIDE RECORDS SUMMARY | 2024-10-20 16:05 | XMS_ITS | Referral Summary ---
Author Organization [facility] Address [address] [place] [address] Care Team Providers Care Vp Customer Development Name Role Phone Brock Wu MD Primary [...] (05/09/2021): Added automatically from request for surgery [id number] Hyperlipidemia, mixed 05/24/2019 Claudication 08/11/2018 Immunizations Immunization Administration Dates Next Due Influenza, Quadrivalent, Spl it, Intramuscular 03/09/2019 Influenza, Trivalent, IM (MDV) 04/07/2018,2013,07/09/2013 Social History Tobacco Use Types Packs/Day Years Used Date Smoking Tobacco: Every Day Cigarettes 0.5 59.3 Started: 1964 Smokeless Tobacco: Never AUDIT-C Answer Date Recorded [...] on file Sexual Orientation Not on file Last Filed Vital Signs Vital Sign Reading Time Taken Comments Blood Pressure 144/88 05/15/2021 2:10 PM PATIENT ACCOUNTS MANAGER Pulse 54 05/15/2021 2:10 PM PATIENT ACCOUNTS MANAGER Temperature 36 C (96.8 F) 05/15/2021 1:15 PM PATIENT ACCOUNTS MANAGER Respiratory Rate 12 05/15/2021 2:10 PM PATIENT ACCOUNTS MANAGER Oxygen Saturation 95% 05/15/2021 2:10 PM PATIENT ACCOUNTS MANAGER Inhaled Oxygen Concentration - - Weight 96.6 kg (213 lb) 10/31/2021 11:10 AM CDT Height 180.3 cm (5' 11 ) 10/31/2021 11:10 AM CDT Body Mass Index 29.71 10/31/2021 11:10 AM CDT Plan of Treatment Not on file Insurance [facility] [place] [address] Care Teams Vp Customer Development Relationship Specialty Start Date End Date Brock Wu MD PCP - General Family Medicine 04/18/21
--- OUTSIDE RECORDS SUMMARY | 2024-10-20 16:05 | XMS_ITS | Clinical Summary ---
Author Organization [facility] Address [address] [place] [address] Care Team Providers Care Sand Control Worker Name Role Phone Familia Pereyra MD Unavailable [phone] Sergey Byrd APRN Unavailable [phone] Won Almaraz DO Primary Care Provider [phone] Allergies Active Allergy Reactions Criticality Noted Date Comments Penicillins Rash Medium 05/15/2017 Medications aspirin EC (ASPIRIN) 81 MG EC tablet Take 1 tablet (81 mg total) by mouth daily. Active ATORVASTATIN 40 MG tablet TAKE 1 TABLET BY MOUTH DAILY 90 tablet 3 07/20/2019 Active lisinopril 40 MG tablet Take 1 tablet (40 mg total) by mouth daily. 90 tablet 3 08/10/2020 Active metoprolol succinate ER 100 MG 24 hr tablet Take 1 tablet (100 mg total) by mouth daily. 90 tablet 3 12/11/2020 Active ELIQUIS 5 MG tablet Take 1 tablet (5 mg total) by mouth 2 (two) times daily. 01/29/2024 Active amLODIPine (NORVASC) 10 MG tabletIndications :Primary hypertension TAKE ONE TABLET DAILY 90 tablet 2 08/23/2024 Active Active Problems Problem Noted Date Diagnosed Date EKG abnormality 2024 New onset atrial fibrillation (CMS/HCC HHS/HCC) 2024 Dyslipidemia 05/27/2022 Hyperlipidemia, mixed 05/24/2019 Claudication 08/11/2018 Carotid disease, bilateral Essential hypertension Smoking history Resolved Problems Problem Noted Date Diagnosed Date Resolved Date Pre-operative cardiovascular examination 05/13/2023 05/18/2023 Hypertension 05/18/2017 Family History Medical History Relation Comments Cancer Father Cancer Mother None Neg Hx Relation Status Comments Father Mother Social History Tobacco Use Types Packs/Day Years Used Date Smoking Tobacco: Every Day Cigarettes Smokeless Tobacco: Never Alcohol Use Standard Drinks/Week Comments Yes 25 (1 standard drink = 0.6 oz pure alcohol) 3 days out of wk drinks approx 15 beers Sex and Gender Information Value Date Recorded Sex Assigned at Not on file Legal Sex Male 10:35 PM CAREER TECHNICAL EDUCATION TEACHER Gender Identity Not on file Sexual Orientation Not on file Occupation Industry Job Start Date Job End Date Not on file Not on file Not on file Not on file Last Filed Vital Signs Vital Sign Reading Time Taken Comments Blood Pressure 140/78 05/23/2024 2:36 PM CAREER TECHNICAL EDUCATION TEACHER Pulse 65 05/23/2024 2:36 PM CAREER TECHNICAL EDUCATION TEACHER Temperature - - Respiratory Rate 18 05/23/2024 2:36 PM CAREER TECHNICAL EDUCATION TEACHER Oxygen Saturation 95% 05/23/2024 2:36 PM CAREER TECHNICAL EDUCATION TEACHER Inhaled Oxygen Concentration - - Weight 96.2 kg (212 lb) 05/23/2024 2:36 PM CAREER TECHNICAL EDUCATION TEACHER Height 180.3 cm (5' 11 ) 05/23/2024 2:36 PM CAREER TECHNICAL EDUCATION TEACHER Body Mass Index 29.57 05/23/2024 2:36 PM CAREER TECHNICAL EDUCATION TEACHER Plan of Treatment Health Maintenance Due Date Last Done Comments Hepatitis C 1963 DTaP, Tdap and Td Vaccines ( 1 - Tdap) 1966 Pneumococcal Vaccine: 50+ Ye ars (1 of 2 - PCV) 1966 Zoster Vaccines (1 of 2) 1997 Annual Medicare Wellness Visit 02/23/2012 RSV Immunization or 60+ Years (1 - 1-dose 75+ series) 2022 COVID-19 Vaccine (1 - 2023-2 5 season) 2024 Meningococcal B Vaccine Aged Out No l onger eligible based on patient's age to complete this topic Meningococcal Vaccine Aged Out No tasneem jalil eligible based on patient's age to complete this topic RSV Immunizations Under 20 Months Aged Out No longer eligible based on patient's age to complete this topic Insurance [facility] Care Teams Sand Control Worker Relationship Specialty Start Date End Date oWn Almaraz DO [address] [place] [address] PCP - General FAMILY PRACTICE 02/22/24 Familia Pereyra MD Vascular/Technician Helper Instrument CARDIOVASCULAR DISEASE 05/15/17 Sergey Byrd APRN Nurse Practitioner NURSE PRACTITIONER 08/11/18
[2024-10-20 16:43] LABS: Thyroid Stimulating Hormone Reflex 2.12 u/IU/mL (0.36-3.74)
== END 2024-10-20 14:54 | disposition home or self-care (01) ==
LOC: CHSLAB 14:54
PROVIDERS: PCP Family Medicine; Visit Provider Family Medicine
DX: R35.1 Nocturia (principal); I10 Essential (primary) hypertension; E03.9 Hypothyroidism, unspecified; Z12.5 Encounter for screening for malignant neoplasm of prostate; M46.1 Sacroiliitis, not elsewhere classified
CPT/HCPCS: 36415; 72202; 80053; 80061; 84153; 84443; 85025; G0103